=== PATIENT | male | born 1955 | race Caucasian/White ===

== ENCOUNTER → 2018-12-14 08:57 | Outpatient (CLI) | payer MEDICARE, OTHER, SELFPAY ==
[2018-12-14 09:43] LABS: Hemoglobin A1C% w Est Avg Glu 5.3 % (4.0-6.0)
[2018-12-14 09:54] LABS: Alanine Aminotransferase 28 IU/L (21-72); Albumin 4.5 g/dL (3.5-5.0); Albumin Globulin Ratio 1.6 (1.0-2.8); Alkaline Phosphatase 58 U/L (38-126); Aspartate Aminotransferase 24 IU/L (17-59); BUN Creatinine Ratio 24.4 (6-22); Bilirubin Total 1.7 mg/dL (0.2-1.3); Blood Urea Nitrogen 22 mg/dL (9-20); Calcium 9.5 mg/dL (8.4-10.2); Carbon Dioxide 27 mmol/L (22-32); Chloride 105 mmol/L (98-107); Estimated Glomerular Filt Rate > 60.0 mL/min (>60); Globulin 2.8 g/dL (1.7-4.1); Glucose 91 mg/dL (80-110); HEMOLYSIS < 15 (0-50); Potassium 4.4 mmol/L (3.4-5.1); Sodium 142 mmol/L (137-145); Total Protein 7.3 g/dL (6.3-8.2)
[2018-12-14 09:55] LABS: Creatinine Urine Random 150.9 mg/dL
[2018-12-14 10:00] LABS: Microalbumi Creatinin Ratio Ur 4.6 ug/mg CR (<30); Microalbumin Urine Random 0.7 mg/dL (0-1.6)
[2018-12-14 10:12] LABS: Free T4, Direct Thyroxine 1.53 ng/dL (0.78-2.19)
[2018-12-14 10:22] LABS: Prostate Specific Antigen Scrn 0.529 ng/mL (0.1-4.0)
[2018-12-14 10:26] LABS: Thyroid Stimulating Hormone 1.11 uIU/mL (0.47-4.68)
[2018-12-17 19:37] LABS: Testosterone Free 38.8 pg/mL (35.0-155.0); Testosterone Total 384 ng/dL (250-1100)
== END ==
PROVIDERS: Visit Provider Internal Medicine
DX: E03.9 Hypothyroidism, unspecified (principal); E11.9 Type 2 diabetes mellitus without complications; E78.5 Hyperlipidemia, unspecified; I10 Essential (primary) hypertension; Z12.5 Encounter for screening for malignant neoplasm of prostate
CPT/HCPCS: 36415; 80053; 82043; 82570; 83036; 84402; 84403; 84439; 84443; G0103

== ENCOUNTER → 2019-05-03 08:33 | Outpatient (CLI) | payer MEDICARE, OTHER, SELFPAY ==
[2019-05-03 09:37] LABS: Alanine Aminotransferase 19 IU/L (<50); Albumin 4.4 g/dL (3.5-5.0); Albumin Globulin Ratio 1.6 (1.0-2.8); Alkaline Phosphatase 57 U/L (38-126); Aspartate Aminotransferase 28 IU/L (17-59); Bilirubin Total 1.4 mg/dL (0.2-1.3); Blood Urea Nitrogen 22 mg/dL (9-20); Calcium 9.3 mg/dL (8.4-10.2); Carbon Dioxide 28 mmol/L (22-32); Chloride 107 mmol/L (98-107); Cholesterol 213 mg/dL (140-199); Estimated Glomerular Filt Rate > 60.0 mL/min (>60); Globulin 2.8 g/dL (1.7-4.1); Glucose 84 mg/dL (80-110); HDL Cholesterol 40 mg/dL (40-60); HEMOLYSIS < 15 (0-50); LDL Cholesterol Calculated 145 mg/dL (<100); Potassium 4.3 mmol/L (3.4-5.1); Sodium 143 mmol/L (137-145); Total Protein 7.2 g/dL (6.3-8.2); Triglycerides 140 mg/dL (35-150)
[2019-05-03 10:47] LABS: Hemoglobin A1C% w Est Avg Glu 5.2 % (4.0-6.0)
== END ==
PROVIDERS: PCP Internal Medicine; Visit Provider Internal Medicine
DX: E11.9 Type 2 diabetes mellitus without complications (principal); E78.5 Hyperlipidemia, unspecified; I10 Essential (primary) hypertension
CPT/HCPCS: 36415; 80053; 80061; 83036

== ENCOUNTER → 2019-05-04 10:51 | Outpatient (CLI) | payer MEDICARE, OTHER, SELFPAY ==
--- NOTE | 2019-05-04 10:54 | DI.RAD.S_ITS ---
PROCEDURE: XR KNEE RT 3V INDICATIONS: knee pain TECHNIQUE: 3 views of the knee were acquired. COMPARISON: None. FINDINGS: Bones: Prior fixation of proximal tibia shaft is seen. There is increased distance between lateral fixation plate and lateral cortex of proximal tibial shaft concerning for hardware loosening. 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 No new fracture or dislocation. No suspicious bony lesions. Soft tissues: No joint effusion. No suspicious soft tissue calcifications. IMPRESSION: Finding may indicate hardware loosening and proximal tibial shaft. Moderate tricompartment osteoarthritis. No acute fracture or dislocation. Dictated by: Blaise Chan M.D. on 05/04/2019 at 20:15 Approved by: Blaise Chan M.D. on 05/04/2019 at 20:17
== END ==
PROVIDERS: PCP Internal Medicine; Visit Provider Internal Medicine
DX: M25.561 Pain in right knee (principal); M17.11 Unilateral primary osteoarthritis, right knee
CPT/HCPCS: 73562

== ENCOUNTER → 2019-10-04 11:11 | Outpatient (CLI) | payer MEDICARE, OTHER, SELFPAY ==
--- NOTE | 2019-10-04 11:15 | DI.US.S_ITS ---
PROCEDURE: US PERIPH VENOUS LOW EXTREM LT INDICATIONS: CRAMPING TECHNIQUE: Real-time imaging, as well as color and pulse Doppler interrogation, were performed of the lower extremity deep veins from the inguinal ligament to the popliteal fossa. COMPARISON: None. FINDINGS: The common femoral, femoral and popliteal veins are normally compressible, and free of intraluminal thrombus. Color and pulse Doppler demonstrate normal phasic intraluminal flow. There is normal augmentation response to distal compression maneuver. IMPRESSION: No DVT found left leg. Dictated by: Charlie Carney M.D. on 10/04/2019 at 11:53 Approved by: Charlie Carney M.D. on 10/04/2019 at 11:54
== END ==
PROVIDERS: PCP Internal Medicine; Referring Provider Internal Medicine; Visit Provider Internal Medicine
DX: R25.2 Cramp and spasm (principal)
CPT/HCPCS: 93971

== ENCOUNTER → 2019-11-03 08:51 | Outpatient (CLI) | payer MEDICARE, OTHER, SELFPAY ==
[2019-11-03 11:06] LABS: Alanine Aminotransferase 16 IU/L (<50); Albumin 4.2 g/dL (3.5-5.0); Albumin Globulin Ratio 1.4 (1.0-2.8); Alkaline Phosphatase 52 U/L (38-126); Aspartate Aminotransferase 21 IU/L (17-59); BUN Creatinine Ratio 23.8 (6-22); Bilirubin Total 0.9 mg/dL (0.2-1.3); Blood Urea Nitrogen 24 mg/dL (9-20); Calcium 9.3 mg/dL (8.4-10.2); Carbon Dioxide 25 mmol/L (22-32); Chloride 111 mmol/L (98-107); Cholesterol 220 mg/dL (140-199); Estimated Glomerular Filt Rate > 60.0 mL/min (>60); Globulin 2.9 g/dL (1.7-4.1); Glucose 108 mg/dL (80-110); HDL Cholesterol 39 mg/dL (40-60); HEMOLYSIS < 15 (0-50); LDL Cholesterol Calculated 155 mg/dL (<100); Potassium 4.8 mmol/L (3.4-5.1); Sodium 143 mmol/L (137-145); Total Protein 7.1 g/dL (6.3-8.2); Triglycerides 129 mg/dL (35-150)
[2019-11-03 11:26] LABS: TSH w/ Reflex to FT4 2.48 uIU/mL (0.47-4.68)
== END ==
PROVIDERS: PCP Internal Medicine; Referring Provider Internal Medicine; Visit Provider Internal Medicine
DX: E03.9 Hypothyroidism, unspecified (principal); E78.5 Hyperlipidemia, unspecified; I10 Essential (primary) hypertension; R73.02 Impaired glucose tolerance (oral)
CPT/HCPCS: 36415; 80053; 80061; 84443

== ENCOUNTER → 2020-04-12 07:09 | Outpatient (CLI) | payer MEDICARE, OTHER, SELFPAY ==
[2020-04-12 07:58] LABS: Hemoglobin A1C% w Est Avg Glu 5.7 % (4.0-6.0)
[2020-04-12 08:07] LABS: Alanine Aminotransferase 18 IU/L (<50); Albumin 4.2 g/dL (3.5-5.0); Albumin Globulin Ratio 1.6 (1.0-2.8); Alkaline Phosphatase 57 U/L (38-126); Aspartate Aminotransferase 22 IU/L (17-59); BUN Creatinine Ratio 24.2 (6-22); Bilirubin Total 0.8 mg/dL (0.2-1.3); Blood Urea Nitrogen 24 mg/dL (9-20); Carbon Dioxide 28 mmol/L (22-32); Chloride 107 mmol/L (98-107); Cholesterol 206 mg/dL (140-199); Estimated Glomerular Filt Rate > 60.0 mL/min (>60); Globulin 2.7 g/dL (1.7-4.1); Glucose 103 mg/dL (80-110); HDL Cholesterol 41 mg/dL (40-60); HEMOLYSIS < 15 (0-50); LDL Cholesterol Calculated 138 mg/dL (<100); Potassium 4.6 mmol/L (3.4-5.1); Sodium 139 mmol/L (137-145); Total Protein 6.9 g/dL (6.3-8.2); Triglycerides 136 mg/dL (35-150)
[2020-04-12 08:22] LABS: Free T4, Direct Thyroxine 1.55 ng/dL (0.78-2.19)
[2020-04-12 08:36] LABS: Prostate Specific Antigen Scrn 2.95 ng/mL (0.1-4.0); Thyroid Stimulating Hormone 3.52 uIU/mL (0.47-4.68)
== END ==
PROVIDERS: PCP Internal Medicine; Referring Provider Internal Medicine; Visit Provider Internal Medicine
DX: R73.02 Impaired glucose tolerance (oral) (principal); I10 Essential (primary) hypertension; Z12.5 Encounter for screening for malignant neoplasm of prostate; E03.9 Hypothyroidism, unspecified; E78.5 Hyperlipidemia, unspecified
CPT/HCPCS: 36415; 80053; 80061; 83036; 84439; 84443; G0103

== ENCOUNTER → 2020-10-12 12:43 | Outpatient (CLI) | payer OTHER, SELFPAY ==
[2020-10-12 13:17] LABS: Alanine Aminotransferase 24 IU/L (<50); Albumin 4.4 g/dL (3.5-5.0); Albumin Globulin Ratio 1.5 (1.0-2.8); Alkaline Phosphatase 63 U/L (38-126); Aspartate Aminotransferase 29 IU/L (17-59); BUN Creatinine Ratio 18.1 (6-22); Bilirubin Total 1.3 mg/dL (0.2-1.3); Blood Urea Nitrogen 17 mg/dL (9-20); Calcium 9.6 mg/dL (8.4-10.2); Carbon Dioxide 26 mmol/L (22-32); Chloride 107 mmol/L (98-107); Cholesterol 264 mg/dL (140-199); Estimated Glomerular Filt Rate > 60.0 mL/min (>60); Globulin 2.9 g/dL (1.7-4.1); Glucose 95 mg/dL (80-110); HDL Cholesterol 41 mg/dL (40-60); HEMOLYSIS < 15 (0-50); LDL Cholesterol Calculated 165 mg/dL (<100); Potassium 4.4 mmol/L (3.4-5.1); Sodium 140 mmol/L (137-145); Total Protein 7.3 g/dL (6.3-8.2); Triglycerides 289 mg/dL (35-150)
[2020-10-12 13:47] LABS: Prostate Specific Antigen 0.801 ng/mL (0.10-4.00)
== END ==
PROVIDERS: PCP Internal Medicine; Referring Provider Internal Medicine; Visit Provider Internal Medicine
DX: E78.5 Hyperlipidemia, unspecified (principal); I10 Essential (primary) hypertension; R97.20 Elevated prostate specific antigen [PSA]; R73.02 Impaired glucose tolerance (oral); Z12.5 Encounter for screening for malignant neoplasm of prostate
CPT/HCPCS: 36415; 80053; 80061; 84153

== ENCOUNTER 2020-11-19 09:18 | Emergency (ER) | payer OTHER, SELFPAY ==
[2020-11-19 09:34] VITALS: BP 166/92; PULSE 65; RESP 14; TEMP 36.4; O2SAT 99
--- NOTE | 2020-11-19 11:12 | ED_ITS ---
HPI - Fall General Chief Complaint: Fall Stated Complaint: Fell backwards,hit head/headache Time Seen by Provider: 11/19/20 11:03 Source: patient Mode of arrival: Ambulatory Limitations: no limitations History of Present Illness HPI Narrative: This is a 65-year-old male who comes emergency department with complaint of mechanical ground level fall. Patient fell backwards striking his head, his upper back and right elbow. Patient has some pain in the soft tissue of his elbow but full range of motion. He states he had some tingling yesterday but that has resolved. He has some generalized neck discomfort in the soft tissue but none at midline. Patient states he has a mild headache. He has felt a little fuzzy today. He denies any severe headache. No vision changes. No nausea or vomiting. Patient has not had any new lower back or abdominal pain. Patient denies any bladder or bowel incontinence. No chest pain or shortness of breath or other issues. He does take an aspirin 81 mg daily as well as m edication for hypertension and dyslipidemia. Related Data Home Medications Medication Instructions Recorded Confirmed aspirin 81 mg tablet,delayed 81 mg PO DAILY 11/22/18 10/15/20 release (Adult Low Dose Aspirin) Previous Rx's Medication Instructions Recorded levothyroxine 137 mcg tablet 137 mcg PO DAILY #90 tab 03/12/20 fluocinonide 0.05 % topical cream 1 applic TOP BID PRN #120 g 04/16/20 trazodone 100 mg tablet 100 mg PO BEDTIME #90 tab 08/19/20 losartan 100 mg tablet 100 mg PO DAILY #90 tab 09/10/20 Allergies Allergy/AdvReac Type Severity Reaction Status Date / Time morphine AdvReac Mild Does not Verified 11/19/20 09:40 help. HAs Review of Systems Review of Systems ROS Unobtainable: All systems reviewed & are unremarkable except as noted in HPI and below Patient History Medical History Cellulitis of left thumb Diabetes type 2, controlled Essential hypertension Gilbert syndrome Hearing loss Hyperlipemia Hypothyroidism (acquired) Impaired glucose tolerance Male hypogonadism Primary insomnia Raynauds phenomenon Surgical History History of ankle surgery (~2001) History of knee surgery (~2001) Family History Family/Other No problems noted. Social History Smoking Status: Former smoker Smoking Status: Former smoker alcohol intake frequency: 0-2 drinks per day Substance Use Type: marijuana Exam Narrative Exam Narrative: GEN: Patient appears in mild distress. HEAD: No evidence of trauma, no raccoon/Degroot sign. NECK: Nontender, painless range of motion, trachea midline Negative for Nexus criteria, there is no line tenderness, distracting injury, altered mental status, neuro deficit, recent EtOH. EYES: PERRLA, EOMI ENT: External inspection normal, trachea is midline, TM's are normal no hemotypanum, Nares are clear, no septal hematoma, no dental or oral injury, airway is normal and with normal occlusion, No bony tenderness RESP: Chest is nontender and has symmetric movement, no ecchymosis, breath sounds are normal no crackles, wheezes or rales CVS: Heart sounds are normal, no murmur noted, No JVD. ABG/GI: Nontender, soft, normal bowel sounds, no distention, no organomegaly. NEURO: Oriented AOx3, neuro is grossly intact, sensation and motor is normal all 4 extremities moving, cranial nerves II through XII are intact, GCS is 15 PSYCH: Normal mood and affect SKIN: Patient has abrasions of right elbow, no lacerations, warm and dry, no crepitus and without decubitus BACK: No CVA tenderness, no vertebral tenderness, no step-off's, no crepitus EXT: Patient has full range of motion of his right elbow he does not have any bony tenderness, he does have some mild swelling over the dorsum of the forearm proximally with some ecchymosis, patient has equal economic analyst bilaterally, 5/5 muscle strength upper and lower extremities. Hips are nontender, no pedal edema, normal color and temperature, normal range of motion of extremities with normal tendon exam, 2+ pulses in all four extremities Initial Vital Signs Initial Vital Signs: Vital Signs Temperature 97.5 F L 11/19/20 09:34 Pulse Rate 65 11/19/20 09:34 Respiratory Rate 14 11/19/20 09:34 Blood Pressure 166/92 H 11/19/20 09:34 Pulse Oximetry 99 07/06/21 09:34 Scores GCS [place] coma scale eye opening: Spontaneous [place] coma scale verbal response: Orientated [place] coma scale motor response: Obey commands [place] coma scale total score: 15 Nexus Score for C-Spine Focal Neurologic deficit present: No Midline spinal tenderness present: No Altered level of conciousness present: No Intoxication present: No Distracting Injury Present: No Nexus Criteria for C-spine: 0 Course Orders Ordered: ED Orders 11/19/20 11:12 CT head/brain wo con Stat Vital Signs Vital signs: Vital Signs - 8 hr 11/19/20 09:34 Temperature 97.5 F L Pulse Rate 65 Respiratory Rate 14 Blood Pressure 166/92 H Pulse Oximetry 99 MDM - Fall Imaging Data CT scan - head: Radiologist's Impression: [address] [id number] Scan ReportSigned Patient: Chapo Santos [facility]#: [id number]: [id number]:[id number]/Sex: 65 / MDate of Service: 11/19/20Loc: EDAccession Number: [id number] Procedure: CT head/brain wo con Ordering Provider: Avril Figueroa D.O. PROCEDURE: CT HEAD/BRAIN WO CON INDICATIONS: fall, head injury, on asa TECHNIQUE: Noncontrast 4.5 mm thick angled axial sections acquired from the foramen magnum to the vertex, with coronal and sagittal reformats. For radiation dose reduction, the following was used: automated exposure control, adjustment of mA and/or kV according to patient size. COMPARISON: None. FINDINGS: Image quality: Excellent. CSF spaces: Basal cisterns are patent. No extra-axial fluid collections. Ventricles are normal in size and shape. Brain: No midline shift. No intracranial masses or hemorrhage. Gonzalez-white matter interface is normal. Skull and face: Small right parietal region scalp hematoma. Calvarium and visualized facial bones are intact, without suspicious lesions. Sinuses: Visualized sinuses and mastoids are clear. IMPRESSION: No acute intracranial abnormality. Dictated by: Jaya Rothman M.D. on 11/19/2020 at 11:46 Approved by: Jaya Rothman M.D. on 11/19/2020 at 11:47 Discharge Plan Departure Patient Disposition: Home Clinical Impression: Abrasion of elbow, Contusion of elbow, Head injury Instructions: DI for Closed Head Injury Activity Restrictions/Additional Instructions: Follow-up with your physician in the next week if you are not having improving symptoms. You may take Tylenol up to a 1000 mg every 8 hours as needed for pain. Wound Care: Keep wound(s) clean and dry. Wash daily with soap and water only. Do not use over the counter products (alcohol or peroxide)on the wounds unless instructed by a physician. If wound condition worsens (increased/expanding redness, developing fluid blisters, or worsening pain), either contact your doctor for an urgent re- assessment , or return to the Emergency Department. Return if fever greater than 100.4 Fahrenheit, increased swelling, increasing pain or worsening symptoms such as increased discharge or spreading redness. Severe headaches, passing out, new chest pain or shortness of breath, new numbness, tingling or weakness of her extremity, inability to ambulate, loss of bowel or bladder control other new or concerning symptoms. Prescriptions: No Action levothyroxine 137 mcg tablet 137 mcg PO DAILY Qty: 90 RF: 3 trazodone 100 mg tablet 100 mg PO BEDTIME Qty: 90 RF: 3 losartan 100 mg tablet 100 mg PO DAILY Qty: 90 RF: 2 fluocinonide 0.05 % cream 1 applic TOP BID PRN (Reason: itching/rash) Qty: 120 RF: 0 aspirin [Adult Low Dose Aspirin] 81 mg tablet,delayed release (DR/EC) 81 mg PO DAILY RF: 0 Referrals: Jorge Molina MD [Primary Care Provider] -
== END 2020-11-19 12:18 | disposition home or self-care (01) ==
PROVIDERS: Emergency Provider Emergency Medicine; PCP Internal Medicine
DX: S09.90XA Unspecified injury of head, initial encounter (principal); S50.311A Abrasion of right elbow, initial encounter; S50.01XA Contusion of right elbow, initial encounter; M54.6 Pain in thoracic spine; M25.521 Pain in right elbow; M54.2 Cervicalgia; W19.XXXA Unspecified fall, initial encounter
CPT/HCPCS: 70450; 99283; 99284

== ENCOUNTER → 2021-04-18 07:04 | Outpatient (CLI) | payer OTHER, SELFPAY ==
[2021-04-18 08:28] LABS: Alanine Aminotransferase 16 IU/L (<50); Albumin 4.1 g/dL (3.5-5.0); Albumin Globulin Ratio 1.5 (1.0-2.8); Alkaline Phosphatase 50 U/L (38-126); Aspartate Aminotransferase 21 IU/L (17-59); BUN Creatinine Ratio 19.2 (6-22); Blood Urea Nitrogen 19 mg/dL (9-20); Calcium 9.3 mg/dL (8.4-10.2); Carbon Dioxide 29 mmol/L (22-32); Chloride 108 mmol/L (98-107); Cholesterol 216 mg/dL (140-199); Estimated Glomerular Filt Rate > 60.0 mL/min (>60); Globulin 2.8 g/dL (1.7-4.1); Glucose 98 mg/dL (80-110); HDL Cholesterol 40 mg/dL (40-60); HEMOLYSIS < 15 (0-50); LDL Cholesterol Calculated 147 mg/dL (<100); Potassium 4.6 mmol/L (3.4-5.1); Sodium 142 mmol/L (137-145); Total Protein 6.9 g/dL (6.3-8.2); Triglycerides 145 mg/dL (35-150)
[2021-04-18 08:43] LABS: Free T4, Direct Thyroxine 1.46 ng/dL (0.78-2.19)
[2021-04-18 08:57] LABS: Thyroid Stimulating Hormone 4.12 uIU/mL (0.47-4.68)
== END ==
PROVIDERS: PCP Internal Medicine; Referring Provider Internal Medicine; Visit Provider Internal Medicine
DX: I10 Essential (primary) hypertension (principal); E78.2 Mixed hyperlipidemia; E03.9 Hypothyroidism, unspecified
CPT/HCPCS: 36415; 80053; 80061; 84439; 84443

== ENCOUNTER → 2021-06-03 14:40 | Outpatient (CLI) | payer MEDICARE, SELFPAY ==
--- NOTE | 2021-06-03 14:43 | DI.RAD.S_ITS ---
PROCEDURE: XR WRIST LT MIN 3V INDICATIONS: fall 6-8ft, L snuffbox tenderness TECHNIQUE: 4 views of the wrist were acquired. COMPARISON: [facility], CR, XR LUMBAR SPINE MIN 4V, 06/03/2021, 14:36. [facility], CR, XR HAND LT MIN 3V, 06/03/2021, 14:36. FINDINGS: Bones: Focal degenerative changes seen involving the 1st carpometacarpal joint, with joint space narrowing and irregularity and fragmented osteophytes. No jazzy superimposed fractures or dislocations. Milder degenerative changes are seen elsewhere. No suspicious bony lesions. Scaphoid view: No navicular fractures are seen. Soft tissues: No suspicious soft tissue calcifications. IMPRESSION: No definite fractures are seen. However, fragmented osteophytes are seen involving the 1st carpometacarpal joint, which limits evaluation for superimposed fracture. If there is point tenderness (or other clinical suspicion for a fracture not seen on these images) please consider a dedicated CT for further evaluation. Dictated by: Hill Gaytan M.D. on 06/03/2021 at 14:25 Approved by: Hill Gaytan M.D. on 06/03/2021 at 14:26
--- NOTE | 2021-06-03 14:43 | DI.RAD.S_ITS ---
PROCEDURE: XR HAND LT MIN 3V INDICATIONS: fall 6-8ft, L snuffbox tenderness and thenar edema/ecchymosis TECHNIQUE: 3 views of the hand(s) acquired. COMPARISON: [facility], CR, XR WRIST LT MIN 3V, 06/03/2021, 14:36. [facility], CR, XR LUMBAR SPINE MIN 4V, 06/03/2021, 14:36. FINDINGS: Bones: Focal degenerative change is seen of the 1st carpometacarpal joint, with fragmented osteophytes. No jazzy displaced fracture can be seen. No suspicious lytic or blastic lesions are seen. Soft tissues: No suspicious soft tissue calcifications. IMPRESSION: Fragmented osteophytes with focal degenerative change can be seen involving the 1st carpometacarpal joint, which limits evaluation for fracture. However, no displaced fractures can be seen. Dictated by: Hill Gaytan M.D. on 06/03/2021 at 14:23 Approved by: Hill Gaytan M.D. on 06/03/2021 at 14:24
--- NOTE | 2021-06-03 14:43 | DI.RAD.S_ITS ---
PROCEDURE: XR LUMBAR SPINE MIN 4V INDICATIONS: fall 6-8ft, R low back pain TECHNIQUE: 5 views of the lumbar spine were acquired, including bilateral oblique views. COMPARISON: [facility], CR, XR WRIST LT MIN 3V, 06/03/2021, 14:36. [facility], CR, XR HAND LT MIN 3V, 06/03/2021, 14:36. FINDINGS: Bones: 5 nonrib-bearing vertebrae are present. There is normal bony alignment. No vertebral body compression fractures. No suspicious bony lesions. Mild disc space narrowing is seen at L1-L2 and L2-L3. Associated endplate irregularity and sclerosis can be seen at these levels. Lower lumbar spine facet arthropathy is seen. Soft tissues: Overlying bowel gas pattern is normal. No suspicious soft tissue calcifications. Atherosclerotic calcification is noted. Oblique images: No pars defects. IMPRESSION: No acute fracture is seen by plain film. If there is point tenderness (or other clinical suspicion for a fracture not seen on these images) then a dedicated CT could be considered for further evaluation, if clinically appropriate. Dictated by: Hill Gaytan M.D. on 06/03/2021 at 14:24 Approved by: Hill Gaytan M.D. on 06/03/2021 at 14:25
== END ==
PROVIDERS: PCP Internal Medicine; Referring Provider Physician Assistant; Visit Provider Physician Assistant
DX: M25.532 Pain in left wrist (principal); M25.732 Osteophyte, left wrist; W11.XXXA Fall on and from ladder, initial encounter; M54.50 Low back pain, unspecified; M25.742 Osteophyte, left hand
CPT/HCPCS: 72110; 73110; 73130

== ENCOUNTER → 2022-02-26 17:23 | Outpatient (CLI) | payer MEDICARE, SELFPAY ==
[2022-02-26 18:13] LABS: Alanine Aminotransferase 21 IU/L (<50); Albumin 4.6 g/dL (3.5-5.0); Albumin Globulin Ratio 1.5 (1.0-2.8); Alkaline Phosphatase 59 U/L (38-126); Aspartate Aminotransferase 31 IU/L (17-59); Bilirubin Total 1.5 mg/dL (0.2-1.3); Blood Urea Nitrogen 24 mg/dL (9-20); Calcium 9.4 mg/dL (8.4-10.2); Carbon Dioxide 29 mmol/L (22-32); Chloride 105 mmol/L (98-107); Cholesterol 240 mg/dL (140-199); Estimated Glomerular Filt Rate > 60 mL/min (>60); Globulin 3.1 g/dL (1.7-4.1); Glucose 98 mg/dL (80-110); HDL Cholesterol 47 mg/dL (40-60); HEMOLYSIS < 15 (0-50); LDL Cholesterol Calculated 173 mg/dL (<100); Potassium 4.4 mmol/L (3.4-5.1); Sodium 141 mmol/L (137-145); Total Protein 7.7 g/dL (6.3-8.2); Triglycerides 100 mg/dL (35-150)
[2022-02-26 18:43] LABS: Prostate Specific Antigen Scrn 0.962 ng/mL (0.1-4.0)
== END ==
PROVIDERS: PCP Internal Medicine; Referring Provider Internal Medicine; Visit Provider Internal Medicine
DX: E78.2 Mixed hyperlipidemia (principal); Z12.5 Encounter for screening for malignant neoplasm of prostate; I10 Essential (primary) hypertension
CPT/HCPCS: 36415; 80053; 80061; G0103

== ENCOUNTER → 2022-05-05 10:12 | Outpatient (CLI) | payer MEDICARE, SELFPAY ==
[2022-05-05 11:40] LABS: COVID19 -Nasal RAPID Negative (Negative)
== END ==
PROVIDERS: PCP Internal Medicine; Visit Provider Surgery
DX: Z01.812 Encounter for preprocedural laboratory examination (principal); Z20.822 Contact with and (suspected) exposure to COVID-19
CPT/HCPCS: 87635; C9803

== ENCOUNTER 2022-05-06 08:43 | Day surgery (SDC) | payer MEDICARE, SELFPAY ==
[2022-05-06 09:21] VITALS: BP 148/89; PULSE 60; RESP 16; TEMP 36.6; O2SAT 97; BMI 29.6
[2022-05-06] MEDS: LACTATED RINGERS 1,000 ML 42 ML IV (09:38)
--- NOTE | 2022-05-06 10:18 | PM.HP.1 ---
History of Present Illness History of Present Illness Date Patient Seen: 05/06/22 Time Patient Seen: 10:18 Chief complaint: SCREENING COLONOSCOPY W/POSS BX Narrative: first colonoscopy for colon cancer screening. Patient History Medical History Cellulitis of left thumb Diabetes type 2, controlled Essential hypertension Gilbert syndrome Hearing loss Hyperlipemia Hypothyroidism (acquired) Impaired glucose tolerance Male hypogonadism Primary insomnia Raynauds phenomenon Surgical History History of ankle surgery (~2001) History of knee surgery (~2001) Family & Social History Family History Family/Other No problems noted. Social History: household members spouse Tobacco & Substance use: Smoking Status Former smoker alcohol intake frequency 0-2 drinks per day Substance Use Type marijuana Meds Home Medications and Allergies Home Medications Medication Instructions Recorded Confirmed Type aspirin 81 mg tablet,delayed 81 mg PO DAILY 11/22/18 05/06/22 History release (Adult Low Dose Aspirin) fluocinonide 0.05 % topical cream 1 applic topical BID PRN 04/16/20 03/03/22 Rx itching/rash #120 grams levothyroxine 137 mcg tablet 137 mcg PO DAILY #90 tabs 12/15/21 05/06/22 Rx losartan 100 mg tablet 100 mg PO DAILY #90 tabs 02/11/22 05/06/22 Rx sodium,potassium,mag sulfates 17.5 See Rx Instructions PO .COMPLEX 04/29/22 Rx gram-3.13 gram-1.6 gram oral soln #354 mL (Suprep Bowel Prep Kit) Allergies Allergy/AdvReac Type Severity Reaction Status Date / Time morphine AdvReac Mild Does not Verified 05/06/22 09:11 help. HAs Review of Systems Review of Systems ROS: Yes All systems reviewed with the patient and are negative except as otherwise documented Exam Vital Signs (past 8 hours): - 05/06/22 09:21 Temperature 98 F Pulse Rate 60 Respiratory Rate 16 Blood Pressure 148/89 H Pulse Oximetry 97 Oxygen Delivery Method Room Air Oxygen Delivery Method Room Air Const General: cooperative and healthy appearing HENNJ Head: normal to inspection, normocephalic and atraumatic Eyes General: appearance normal, both eyes and all related structures Neck Neck: trachea midline Chest Chest: normal inspection of the chest Resp Effort & Inspection: normal respiratory effort and able to speak in complete sentences Cardio Rate: regular rate Rhythm: regular rhythm GI Inspection: normal to inspection Skin General: atrophy Neuro General: patient alert, patient awake and patient oriented x3 Cognition: normal cognition Extrem General: normal to inspection Psych Attitude: cooperative Judgment: judgment good Assessment & Plan Assessment & Plan narrative: Colon cancer screening with colonoscopy using MAC COVID-19 COVID-19 status: Negative Time Spent With Patient Time with patient: less than 30 minutes Critical Care time: I spent a total of [] minutes of critical care time on this patient's care today; this time is exclusive of procedural time.
--- NOTE | 2022-05-06 10:38 | PM.OP.COLON ---
Operative Date/Time/Diagnoses Date of procedure: 05/06/22 Time of procedure: 10:39 Pre-op diagnosis: colon cancer screening Post-op diagnosis: same Procedure & Clinicians Study performed: Colonoscopy with MAC Same procedure as scheduled: Yes Indications: Colon cancer screening Surgeon: Jamee Nye Procedure Notes Procedure in detail: Preop diagnosis: Colon cancer screening Postop diagnosis: Same Operative procedure: Colonoscopy using MAC Surgeon: Jacqueline Nye MD Findings: Significant diverticulosis of the descending colon both large and small, no polyps identified Procedure: Patient placed in lateral position. Rectal exam performed showing normal tone no masses. Colonoscope inserted into the rectum and advanced to ileocecal valve with minimal difficulty. Insufflation and extraction of the scope and the above findings including retroflex in the rectum. Impression: Significant diverticulosis of the descending colon both large and small. No polyps identified Plan: Repeat colonoscopy in 10 years unless otherwise indicated by change in clinical condition Findings: divertiulosis Specimen(s): none sent Complications: none Post-procedure Recommendations: Colonoscopy in 10 years Follow up: as needed Disposition: PACU
[2022-05-06 10:42] VITALS: BP 94/64; PULSE 64; RESP 14; TEMP 36.2; O2SAT 94
[2022-05-06 10:47] VITALS: BP 96/64; PULSE 62; RESP 15; O2SAT 93
[2022-05-06 10:52] VITALS: BP 105/67; PULSE 64; RESP 13; O2SAT 95
[2022-05-06 10:58] VITALS: BP 116/81; PULSE 63; RESP 13; TEMP 36.4; O2SAT 95
[2022-05-06 11:09] VITALS: BP 113/75; PULSE 55; RESP 14; TEMP 36.9; O2SAT 98
== END 2022-05-06 11:23 | disposition home or self-care (01) ==
PROVIDERS: PCP Internal Medicine; Referring Provider Surgery; Visit Provider Surgery
PROC: 0DJD8ZZ Inspection of Lower Intestinal Tract, Via Natural or Artificial Opening Endoscopic (ICD-10-PCS; CPT 45378; principal; 2022-05-06 10:00)
DX: Z12.11 Encounter for screening for malignant neoplasm of colon (principal); K57.30 Diverticulosis of large intestine without perforation or abscess without bleeding
CPT/HCPCS: G0121; J2704

== ENCOUNTER → 2022-06-06 09:51 | Outpatient (CLI) | payer MEDICARE, SELFPAY ==
--- NOTE | 2022-06-06 09:53 | DI.CT.S_ITS ---
PROCEDURE: CT KIDNEY URETER BLADDER (KUB) INDICATIONS: suspect kidney stone, hematuria TECHNIQUE: Axial sections were acquired from the lung bases to the pubic symphysis. Coronal and sagittal reformats were performed. For radiation dose reduction, the following was used: automated exposure control, adjustment of mA and/or kV according to patient size. COMPARISON: None. FINDINGS: Image quality: Excellent. Lung bases: Unremarkable. Heart: No significant findings. URINARY: Right Kidney: There is an 8 mm Hounsfield units 1095 stone in the superior renal pole. A 9 mm Hounsfield units 1059 stone is noted in the inferior pole. 4.0 cm simple renal cyst is present. No obstruction. Right Ureter: No hydroureter. Left Kidney: Punctate inferior pole calcification. 2.3 cm simple renal cyst. No obstruction. Left Ureter: No hydroureter. Bladder: Normal wall thickness. No stones. ABDOMEN: Liver: Unremarkable. Gallbladder: Unremarkable. Biliary ducts: Unremarkable. Pancreas: Unremarkable. Spleen: Unremarkable. Adrenal Glands: 2.0 cm right adrenal gland mass Hounsfield units measure -16 Stomach and Bowel: Stomach, small bowel loops, and colon are nonobstructive. Appendix is normal. Moderate scattered diverticula without inflammatory change. Peritoneum: No abnormal intraperitoneal fluid. No free air. Ventral Wall: No hernia. Abdominal Nodes: No enlarged retroperitoneal or mesenteric lymph nodes. Vessels: Aorta and inferior vena cava are normal in size. PELVIS: Pelvic Organs: Unremarkable. Pelvic Nodes: Unremarkable. Miscellaneous: No inguinal hernias are seen. Bones: Unremarkable. IMPRESSION: Bilateral renal calculi more prominent on the right. No obstruction. Right adrenal mass most suggestive of benign adenoma. Dictated by: Tori Garzon M.D. on 06/06/2022 at 10:33 Approved by: Tori Garzon M.D. on 06/06/2022 at 10:36
== END ==
PROVIDERS: PCP Internal Medicine; Referring Provider Family Medicine; Visit Provider Family Medicine
DX: R31.9 Hematuria, unspecified (principal); N20.0 Calculus of kidney; N28.1 Cyst of kidney, acquired; E27.9 Disorder of adrenal gland, unspecified
CPT/HCPCS: 74176

== ENCOUNTER → 2022-07-01 07:54 | Outpatient (CLI) | payer MEDICARE, SELFPAY ==
--- NOTE | 2022-07-01 07:56 | DI.RAD.S_ITS ---
PROCEDURE: XR KUB INDICATIONS: kidney stone TECHNIQUE: One view of the abdomen acquired. COMPARISON: None. FINDINGS: Surgical changes and devices: None. Bowel: Bowel gas pattern is normal. Soft tissues: Oval calcifications are seen projecting in right renal parenchyma measures 8 x 5 mm in upper to midpole right kidney and 9 x 10 mm in mid to lower pole right kidney. No gross left-sided renal stone is seen. Visualized solid organ contours appear normal in size. Bones: No suspicious bony lesions. IMPRESSION: Suggestion of right-sided renal calculi as above. No bowel obstruction or gross free air. Dictated by: Blaise Chan M.D. on 07/01/2022 at 9:43 Approved by: Blaise Chan M.D. on 07/01/2022 at 9:45
== END ==
PROVIDERS: PCP Internal Medicine; Referring Provider Specialist; Visit Provider Specialist
DX: N20.0 Calculus of kidney (principal); N23 Unspecified renal colic
CPT/HCPCS: 51798; 74018; 81002; 99215

== ENCOUNTER 2022-07-24 07:43 | Day surgery (SDC) | payer MEDICARE, SELFPAY ==
[2022-07-22 14:43] VITALS: BMI 30.2
--- NOTE | 2022-07-24 | DI.RAD.S_ITS ---
PROCEDURE: XR KUB INDICATIONS: Right renal calculi TECHNIQUE: One view of the abdomen acquired. COMPARISON: [facility], CT, CT KIDNEY URETER BLADDER (KUB), 06/06/2022, 9:57. [facility], CR, XR KUB, 07/01/2022, 7:59. FINDINGS: Surgical changes and devices: None. Bowel: Bowel gas pattern is normal. Soft tissues: 2 right kidney stones are unchanged. These measure 1.2 cm and 0.8 cm. No suspicious abdominal calcifications. Visualized solid organ contours appear normal in size. Bones: No suspicious bony lesions. IMPRESSION: Right kidney stones x2 are unchanged. Dictated by: Akira Campoverde M.D. on 07/24/2022 at 8:26 Approved by: Akira Campoverde M.D. on 07/24/2022 at 8:29
== END 2022-07-24 07:45 | disposition home or self-care (01) ==
PROVIDERS: PCP Internal Medicine; Referring Provider Specialist; Visit Provider Specialist
DX: N20.0 Calculus of kidney (principal); Z53.09 Procedure and treatment not carried out because of other contraindication
CPT/HCPCS: 74018

== ENCOUNTER 2022-08-07 06:24 | Observation (INO) | payer MEDICARE, SELFPAY ==
[2022-07-30 12:33] VITALS: BMI 30.2
[2022-08-07] VITALS (19 sets, daily range): BP systolic 131–195; BP diastolic 62–138; PULSE 44–98; RESP 12–21; TEMP 35.9–37.1; O2SAT 88–100; BMI 30.2
--- NOTE | 2022-08-07 | DI.CT.S_ITS ---
PROCEDURE: CT ANGIO HEAD AND NECK INDICATIONS: RIGHT FACIAL DROOP AND TINGLING TECHNIQUE: After the administration of intravenous contrast, 1 mm thick sections acquired from the aortic arch through the [place]. Post-contrast 4.5 mm thick sections then re-acquired from the foramen magnum to the vertex. 3-dimensional [id number] (MIP) and/or volume rendering reformats were acquired of the central intracranial vasculature and neck separately. For radiation dose reduction, the following was used: automated exposure control, adjustment of mA and/or kV according to patient size. COMPARISON: None. FINDINGS: Image quality: Excellent. BRAIN: CSF spaces: Ventricles are normal in size and shape. Basal cisterns are patent. No extra-axial fluid collections. Brain: No midline shift. No intracranial masses. Gonzalez-white matter interface appears intact. There are atherosclerotic calcifications of the intracranial segments of the internal carotid arteries. No abnormal enhancement. Skull and face: Calvarium and facial bones appear intact, without suspicious lesions. Orbits appear normal. Sinuses: Sinuses and mastoids are clear. HEAD CT ANGIOGRAPHY: Anterior circulation: Atherosclerotic calcifications are noted. Intracranial internal carotid arteries appear patent without high-grade stenosis. There is flow/opacification within the paired anterior cerebral arteries. There is opacification within the middle cerebral arteries. The anterior communicating artery is seen. No aneurysms are seen. No occlusion. Posterior circulation: Visualized portions of the vertebral arteries are patent and join to form a normal appearing basilar artery. No evidence for high-grade stenosis. No occlusions. There is opacification of the posterior cerebral arteries. No aneurysms are seen. NECK CT ANGIOGRAPHY: Carotid system: The great vessels demonstrate a conventional anatomy as they arise from the aortic arch. Atherosclerotic calcifications noted at the origins of the great vessels. The origins of the common carotid arteries appear patent. The common carotid arteries appear patent throughout their visualized courses without high grade stenosis. Scattered atherosclerotic calcifications of the carotid bifurcation bilaterally. The bifurcation regions are both patent without high grade stenosis. The internal carotid arteries demonstrate normal calibers and courses. Posterior circulation: Atherosclerotic calcifications are noted. The origins of the vertebral arteries both appear patent without hemodynamically significant stenosis. The more superior extracranial portions of both vertebral arteries also demonstrate normal courses and calibers. They join to form a normal appearing basilar artery. Soft tissues: Visualized neck soft tissues demonstrate no suspicious abnormalities. Bones: No suspicious bony lesions. Visualized cervical spine appears normally aligned. No acute compression fractures of the vertebral bodies. Multilevel cervical spondylosis most prominent from C5-6 through C6-7. IMPRESSION: 1. Negative CT angiogram of the head and neck arterial vasculature. 2. Atherosclerosis. Other chronic findings as above. If there is persistent or high clinical suspicion for acute cerebrovascular ischemia/stroke, more sensitive evaluation with brain MRI can be considered. Any quantitative measurements of stenosis were performed using NASCET criteria. Dictated by: Rickie Grant M.D. on 08/07/2022 at 10:51 Approved by: Rickie Grant M.D. on 08/07/2022 at 10:58
--- NOTE | 2022-08-07 | DI.RAD.S_ITS ---
PROCEDURE: XR KUB INDICATIONS: Right renal calculus TECHNIQUE: One view of the abdomen acquired. COMPARISON: [facility], , XR KUB, 07/24/2022, 9:00. FINDINGS: Surgical changes and devices: None. Bowel: Bowel gas pattern is nonobstructive. Soft tissues: No suspicious abdominal calcifications. Visualized solid organ contours appear normal in size. Redemonstration of 2 renal stones projecting over the right renal shadow. These are stable. The more superior stone measures 0.8 cm and the more inferior stone measures 1.2 cm. Bones: No suspicious bony lesions. IMPRESSION: Stable radiographic appearance of 2 right renal stones as described above. No acute radiographic abnormalities. Dictated by: Rickie Grant M.D. on 08/07/2022 at 9:30 Approved by: Rickie Grant M.D. on 08/07/2022 at 9:32
[2022-08-07] MEDS: LACTATED RINGERS 1,000 ML 21 ML IV ×2 (07:09→08:35)
--- NOTE | 2022-08-07 07:11 | SUR.OPER ---
Addendum entered by Idalia Lane R.N. 08/07/22 07:12: Lithotomy on ESWL bed, head on pillow, arms at sides. Legs secured in ESWL padded fins stirrups. Legs released from lithotomy after stent placement and returned to supine on ESWL table with arms at side. Original Note: Lithotomy on esw bed, head on pillow, arms secured on padded arm boards at <90 degrees abduction. Legs secured in padded yellow fins stirrups.
--- NOTE | 2022-08-07 07:51 | PM.PREOP ---
Pre-operative Note COVID-19 Criteria for continued procedure: Expected advancement of disease process, Possibility delay results in more complex future surgery or treatment, Continuing or worsening of significant or severe pain, Delay expected to result in less-positive ultimate med/surg outcome and Non-surgical alternatives not available or appropriate per current SOC Interval Note History & Physical reviewed/Exam performed by Physician: Yes Changes to H&P: No
--- NOTE | 2022-08-07 07:54 | PM.HP.1 ---
History of Present Illness History of Present Illness Date Patient Seen: 08/07/22 Time Patient Seen: 07:20 Chief complaint: SDC Narrative: Chapo is a 67-year-old male with history of intermittent right flank pain since approximately 2015. Recent imaging including CT and plain films have identified an 8 mm right upper pole calculus and a 9 mm right interpolar calculus. An incidental 2 mm calculus was also demonstrated on CT in the left kidney which was also nonobstructing. 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 He requests definitive intervention. Patient History Medical History Calculus of right kidney Cellulitis of left thumb Diabetes type 2, controlled Diverticular disease of colon Essential hypertension Gilbert syndrome Hearing loss History of arthritis History of renal stone Hx of essential hypertension Hyperlipemia Hypothyroidism (acquired) Impaired glucose tolerance Kidney stones Male hypogonadism Primary insomnia Raynauds phenomenon Renal colic on right side Surgical History History of ankle surgery (~2001) History of knee surgery (~2001) Hx of colonoscopy (05/06/22) Family & Social History Family History Family/Other No problems noted. Social History: household members spouse Tobacco & Substance use: Smoking Status Former smoker alcohol intake current alcohol intake frequency 0-2 drinks per day Substance Use Type marijuana Meds Home Medications and Allergies Home Medications Medication Instructions Recorded Confirmed Type fluocinonide 0.05 % topical cream 1 applic topical BID PRN 04/16/20 05/21/22 Rx itching/rash #120 grams levothyroxine 137 mcg tablet 137 mcg PO DAILY #90 tabs 12/15/21 08/07/22 Rx losartan 100 mg tablet 100 mg PO DAILY #90 tabs 05/26/22 08/07/22 Rx tadalafil 5 mg tablet (Cialis) 5 mg PO DAILY PRN sexual activity 07/01/22 08/07/22 Rx #30 tabs Allergies Allergy/AdvReac Type Severity Reaction Status Date / Time tomato Allergy Verified 08/07/22 06:39 morphine AdvReac Mild Does not Verified 08/07/22 06:39 help. HAs Review of Systems Review of Systems ROS: Yes All systems reviewed with the patient and are negative except as otherwise documented Exam Vital Signs (past 8 hours): - 08/07/22 06:55 Temperature 97.6 F Pulse Rate 57 L Respiratory Rate 16 Blood Pressure 141/87 H Pulse Oximetry 98 Oxygen Delivery Method Room Air Oxygen Delivery Method Room Air Narrative Exam Narrative: Well-developed moderately over nourished elderly male no acute distress. Head/neck-sclera are clear pupils are equal and round bilaterally. No visible evidence of adenopathy or JVD. Chest-equal and unlabored expansion bilaterally. Heart-normal sinus rhythm. Assessment & Plan Assessment and plan (1) Calculus of right kidney: Status: Acute (2) Renal colic on right side: Status: Acute (3) History of renal stone: Status: Acute Plan 1. Proceed CYSTOSCOPY/PLACEMENT RIGHT URETERAL STENT/RIGHT EXTRACORPOREAL SHOCKWAVE LITHOTRIPSY.
[2022-08-07] MEDS: CEFAZOLIN 2 GM/100 ML PREMIX 100 ML IV (08:05)
--- NOTE | 2022-08-07 09:08 | PM.OP.1 ---
Operative Date/Time/Diagnoses Date of procedure: 08/07/22 Time of procedure: 08:50 Pre-op diagnosis: 1. Right renal calculi x2. 2. Right renal colic. Post-op diagnosis: same Procedure & Clinicians Procedure: 1. Cystoscopy/placement right ureteral stent (7 Ugandan by 22-32 cm multi-length). 2. Right extracorporeal shockwave lithotripsy (maximal power level 7.0 x 2000 shocks). Same procedure as scheduled: Yes Indications: 1. Right renal calculi x2. 2. Right renal colic Surgeon: Tien Ferrer Click Yes if Unassisted: Yes Anesthesia Type: General Operative Notes Findings: Index calculi, 8 mm right upper pole calculus, and 9 mm right interpolar calculus unchanged in position compared to preoperative imaging. Closure Type: not applicable Specimen(s): none sent Applied: other (Seven Ugandan x 22-32 cm multi-length.) Estimated Blood Loss (mL): 0 Blood products transfused: none Procedure in detail: The patient was positioned supine and was administered general anesthesia. He was then repositioned in semi lithotomy the lower abdomen, genitalia, and groin were then prepped and draped in sterile fashion. The 22 [place] panendoscope of the past lower urinary tract with findings of a normal caliber urethra without annular stricture or lesion., external sphincter was intact with normal overlying urothelium., prostate had 4+ cm length with moderate lateral lobe hyperplasia and elevated median bar. Bladder demonstrated 1+ trabeculation and normal ureteral orifices bilaterally. No evidence of stone, neoplasm or diverticulum. Next a 0.35 hybrid guidewire was advanced through the working channel of the scope and advanced to the right ureteral orifice and advanced proximally under direct and fluoroscopic guidance. Over this a 7 [place] by 22-32 cm multi LENGTH stent was advanced, again under direct and fluoroscopic guidance. NO RETRIEVAL LINE WAS LEFT ATTACHED. The bladder was then drained completely and the horton endoscope was removed. Next, the upper pole right renal calculus was localized in the X, Y, and Z plane. Lithotripsy was then commenced at minimal power level for 200 shocks. A 2 minute pause was then conducted. Lithotripsy was then commenced and the power level was gradually increased to a maximum of 7.0. There was excellent evidence of stone comminution. Total of proximally 900 shocks were delivered to the stone. Next, lower interpolar stone was localized in the X, Y, and Z plane. Lithotripsy was then conducted for total of proximally 1100 shocks. At a total of 2000 shocks there was excellent radiographic evidence of stone comminution of both stones. The patient was then repositioned in supine, was awakened, transferred to [facility], and transferred to recovery in stable condition. Complications: none Post-operative Condition: stable Disposition: PACU Plan for aftercare: Discharge home.
[2022-08-07] MEDS: POLYVINYL ALCOHOL DROPS 1 DROPS EYE-RIGHT (09:16)
--- NOTE | 2022-08-07 09:24 | SUR.PHASEII ---
Pt positioned left side head down per MD
--- NOTE | 2022-08-07 10:25 | SUR.PHASEII ---
Code neuro called due to altered mental status and facial droop. Labs drawn and sent. Patient to CT via stetcher.
--- NOTE | 2022-08-07 10:26 | DI.CT.S_ITS ---
PROCEDURE: CT STROKE INDICATIONS: possible CVA TECHNIQUE: Noncontrast 4.5 mm thick angled axial sections acquired from the foramen magnum to the vertex, with coronal reformats. For radiation dose reduction, the following was used: automated exposure control, adjustment of mA and/or kV according to patient size. COMPARISON: None. FINDINGS: Image quality: Excellent. CSF spaces: Basal cisterns are patent. No extra-axial fluid collections. The ventricles are symmetric in size and shape. Brain: No intracranial bleeds or masses. There is cerebral volume loss for age, with resultant ventricular and sulcal prominence. There are periventricular and deep white matter chronic small vessel ischemic changes. There is intracranial internal carotid artery atherosclerosis. Skull and face: Calvarium and visualized facial bones appear intact, without suspicious lesions. Sinuses: Visualized sinuses and mastoids are clear. IMPRESSION: 1. CT head without acute intracranial abnormalities or acute calvarial fractures. 2. Age-related senescent changes and sequela of chronic small vessel ischemic disease. Findings were discussed with Dr. Liu at 1047 hrs PST. This study fulfills neurological imaging criteria for inclusion or exclusion of acute stroke therapies based on available published neurological guidelines. Dictated by: Rickie Grant M.D. on 08/07/2022 at 10:40 Approved by: Rickie Grant M.D. on 08/07/2022 at 10:49
[2022-08-07 10:35] LABS: Add Manual Diff / Slide Review NO; Basophils Absolute Auto 0 /uL (0-100); Basophils Percent Auto 0.7 % (0-2); Eosinophils Absolute Auto 200 /uL (0-450); Eosinophils Percent Auto 2.7 % (2-4); Hematocrit 44.2 % (41-53); Hemoglobin 14.9 g/dL (13.5-17.5); Lymphocytes Absolute Auto 1600 /uL (1100-4500); Lymphocytes Percent Auto 24.9 % (25-40); Mean Corpuscular HGB Conc 33.8 % (30-36); Mean Corpuscular Hemoglobin 32.3 PG (26-34); Mean Corpuscular Volume 95.5 fL (80-100); Monocytes Absolute Auto 500 /uL (0-900); Monocytes Percent Auto 8.1 % (3-14); Neutrophils Absolute Auto 4000 /uL (1500-7000); Neutrophils Percent Auto 63.6 % (50-75); Platelet Count 147 X10^3/uL (150-400); Red Blood Cell Count 4.63 X10^6/uL (4.5-5.9); Red Cell Distribution Width 13.5 % (11.6-14.8); White Blood Cell Count 6.3 X10^3/uL (4.5-11.0)
[2022-08-07 10:39] LABS: INR 1.1 (0.9-1.3); Prothrombin Time 12.2 SECONDS (10.1-12.7)
[2022-08-07 10:42] LABS: PTT Partial Thromboplastin Tim 34 SECONDS (26-36)
[2022-08-07] MEDS: OXYCODONE IR 5 MG TABLET PO ×3 (11:22→21:21)
--- NOTE | 2022-08-07 11:57 | DI.RAD.S_ITS ---
PROCEDURE: XR CHEST 1V INDICATIONS: upper lobe infiltrate on CT TECHNIQUE: One view of the chest was acquired. COMPARISON: None. FINDINGS: Surgical changes and devices: None. Lungs and pleura: Right basal opacity is present. Lung volumes. No pleural effusions. Mediastinum: Borderline enlarged heart. Bones and chest wall: No suspicious bony lesions. Overlying soft tissues appear unremarkable. IMPRESSION: Small opacity at the right lung base could represent atelectasis or early airspace disease. Consider future imaging surveillance to assess for resolution. Low lung volumes. Dictated by: José Luis Shipman M.D. on 08/07/2022 at 12:44 Approved by: José Luis Shipman M.D. on 08/07/2022 at 12:46
--- NOTE | 2022-08-07 12:01 | DI.MRI.S_ITS ---
PROCEDURE: MR HEAD/BRAIN WO CON INDICATIONS: TIA, right facial droop/numbness TECHNIQUE: Noncontrast axial T1 spin echo, axial T2 fast spin echo, sagittal and axial FLAIR, coronal T2 fast spin echo, axial gradient echo, axial diffusion and ADC through the brain. COMPARISON: None. FINDINGS: Image quality: Good CSF spaces: Basal cisterns are patent. Lateral ventricles are symmetric. Volume: Volume loss. Periventricular white matter signal abnormality most commonly seen with small vessel disease. These findings are moderate. Volume loss is particularly pronounced in the cerebellum. Brain: No intracranial hemorrhage. Gonzalez-white differentiation is grossly maintained. Craniofacial structures: No displaced fracture. Sinuses are clear. Orbits are intact. IMPRESSION: No acute infarct identified. No acute hematoma. Dictated by: José Luis Shipman M.D. on 08/07/2022 at 14:05 Approved by: José Luis Shipman M.D. on 08/07/2022 at 14:07
--- NOTE | 2022-08-07 12:05 | PM.HP.1 ---
History of Present Illness History of Present Illness Date Patient Seen: 08/07/22 Chief complaint: SDC Narrative: Chapo Santos is a 67-year-old male with past medical history of hypertension, hyperlipidemia, type 2 diabetes, hypothyroidism, and kidney stones who presents postop after right kidney lithotripsy and stent placement with possible TIA. Patient awoke from anesthesia with noticeable facial droop and said his right face felt numb. No other neuro deficits by the time I assessed patient his symptoms had resolved. CT head and CTA head neck were normal. Patient is in pain in his right flank from the surgery and blood pressure is elevated to 190s over 100 systolic. Labs are unremarkable. He denies headache, dizziness, visual changes, nausea vomiting, chest pain, or shortness of breath. Patient History Medical History Calculus of right kidney Cellulitis of left thumb Diabetes type 2, controlled Diverticular disease of colon Essential hypertension Gilbert syndrome Hearing loss History of arthritis History of renal stone Hx of essential hypertension Hyperlipemia Hypothyroidism (acquired) Impaired glucose tolerance Kidney stones Male hypogonadism Primary insomnia Raynauds phenomenon Renal colic on right side Surgical History History of ankle surgery (~2001) History of knee surgery (~2001) Hx of colonoscopy (05/06/22) Family & Social History Family History Family/Other No problems noted. Social History: household members spouse Tobacco & Substance use: Smoking Status Former smoker alcohol intake current alcohol intake frequency 0-2 drinks per day Substance Use Type marijuana Meds Home Medications and Allergies Home Medications Medication Instructions Recorded Confirmed Type fluocinonide 0.05 % topical cream 1 applic topical BID PRN 04/16/20 05/21/22 Rx itching/rash #120 grams levothyroxine 137 mcg tablet 137 mcg PO DAILY #90 tabs 12/15/21 08/07/22 Rx losartan 100 mg tablet 100 mg PO DAILY #90 tabs 05/26/22 08/07/22 Rx tadalafil 5 mg tablet (Cialis) 5 mg PO DAILY PRN sexual activity 07/01/22 08/07/22 Rx #30 tabs oxycodone 5 mg tablet 5 mg PO Q4H PRN pain #14 tabs 08/07/22 Rx Allergies Allergy/AdvReac Type Severity Reaction Status Date / Time tomato Allergy Verified 08/07/22 06:39 morphine AdvReac Mild Does not Verified 08/07/22 06:39 help. HAs Review of Systems Review of Systems Narrative: All other systems reviewed with the patient and are negative unless otherwise stated. Exam Vital Signs (past 8 hours): - 08/07/22 06:55 08/07/22 09:07 08/07/22 09:12 Temperature 97.6 F 97.4 F L Pulse Rate 57 L 67 62 Respiratory Rate 16 12 12 Blood Pressure 141/87 H 174/98 H 162/88 H Pulse Oximetry 98 93 91 Oxygen Delivery Method Room Air Room Air Room Air 08/07/22 09:17 08/07/22 09:25 08/07/22 09:30 Temperature 98.2 F Pulse Rate 63 61 54 L Respiratory Rate 14 16 16 Blood Pressure 159/82 H 159/62 H 188/98 H Pulse Oximetry 91 90 L 98 Oxygen Delivery Method Room Air Room Air Room Air 08/07/22 09:45 08/07/22 10:00 08/07/22 10:30 Temperature Pulse Rate 58 L 58 L 58 L Respiratory Rate 16 16 16 Blood Pressure 182/90 H 188/98 H 182/98 H Pulse Oximetry 98 98 88 L Oxygen Delivery Method Room Air Room Air 08/07/22 11:27 08/07/22 11:00 08/07/22 10:15 Temperature Pulse Rate 56 L 98 H 56 L Respiratory Rate 15 16 14 Blood Pressure 187/88 H 187/98 H 192/98 H Pulse Oximetry 98 98 100 Oxygen Delivery Method Room Air Room Air Room Air 08/07/22 10:45 Temperature Pulse Rate 58 L Respiratory Rate 16 Blood Pressure 190/88 H Pulse Oximetry 100 Oxygen Delivery Method Room Air Oxygen Delivery Method Room Air Narrative Exam Narrative: GEN: no acute distress, appears in pain HEENT: moist mucous membranes, PERRL NECK: trachea midline, no JVD CV: regular rate and rhythm, no murmurs PULM: clear bilaterally ABD: soft, nontender, nondistended, no organomegaly EXT: warm and well perfused with no edema NEURO: awake, alert, oriented, no focal deficits, no facial droop, no extremity weakness Objective Labs 03/24/23 10:20 Labs: Laboratory Results - last 24 hr 08/07/22 08/07/22 10:20 10:20 WBC 6.3 RBC 4.63 Hgb 14.9 Hct 44.2 MCV 95.5 MCH 32.3 MCHC 33.8 RDW 13.5 Plt Count 147 L Neut % (Auto) 63.6 Lymph % (Auto) 24.9 L [place] % (Auto) 8.1 Eos % (Auto) 2.7 Baso % (Auto) 0.7 Neut # (Auto) 4000 Lymph # (Auto) 1600 [place] # (Auto) 500 Eos # (Auto) 200 Baso # (Auto) 0 PT 12.2 INR 1.1 APTT 34 Assessment & Plan Assessment & Plan narrative: # possible postop TIA -patient awoke from anesthesia with right-sided facial droop and right facial numbness, not tpa candidate as symptoms resolved -CT head and CTA head and neck were normal -MRI brain ordered, echo ordered -tele to look for atrial fibrillation -start aspirin daily, ABCD2 score of 2 so we will not add Plavix at this time -permissive hypertension -check lipids, A1c 5.8% # s/p right lithotripsy and stent placement due to 2 kidney stones -performed by Dr. Ferrer, urology on 08/07 -pain medication as needed # hypertension -holding home losartan for 24 hour # type 2 diabetes -not on medications at home, most recent A1c 5.7% in 2019 -A1c 5.8% # hypothyroidism -continue home Synthroid -check TSH Code status is full code. COVID negative. DVT prophylaxis with Lovenox. Proxy is . I have reviewed home meds and used all available resources to reconcile the home meds. This patient will be admitted as observation and will require less than 2 midnights of hospital time to treat TIA.
--- NOTE | 2022-08-07 12:07 | PC.NURSE ---
Day shift: Pt in room from PACU at approx 1200. He is A&Ox4. NIH 0. Spouse in room for support. Tele placed on Pt. RA 97%. BP is elevated 195/94. Dr Liu aware Pt in room 222. We was able to get from stretcher to AC bed well and steady on his feet. Swallow eval by [employer]AL[employer] ASSURANCE AUDITOR passed by Pt. WIll continue with plan of care. Pt does endorse rt side abd and back pain.
[2022-08-07] MEDS: OXYCODONE IR 10 MG TABLET PO (12:15)
[2022-08-07 12:55] LABS: Hemoglobin A1C% w Est Avg Glu 5.8 % (4.0-6.0)
[2022-08-07 13:16] LABS: COVID19 -Nasal RAPID Negative (Negative)
[2022-08-07 15:16] LABS: Alanine Aminotransferase 30 IU/L (<50); Albumin 4.1 g/dL (3.5-5.0); Albumin Globulin Ratio 1.5 (1.0-2.8); Alkaline Phosphatase 77 U/L (38-126); Aspartate Aminotransferase 30 IU/L (17-59); BUN Creatinine Ratio 14.2 (6-22); Bilirubin Total 1.1 mg/dL (0.2-1.3); Blood Urea Nitrogen 16 mg/dL (9-20); Calcium 8.6 mg/dL (8.4-10.2); Carbon Dioxide 26 mmol/L (22-32); Chloride 105 mmol/L (98-107); Cholesterol 237 mg/dL (140-199); Estimated Glomerular Filt Rate > 60 mL/min (>60); Globulin 2.8 g/dL (1.7-4.1); Glucose 128 mg/dL (80-110); HDL Cholesterol 37 mg/dL (40-60); HEMOLYSIS < 15 (0-50); LDL Cholesterol Calculated 163 mg/dL (<100); Potassium 4.3 mmol/L (3.4-5.1); Sodium 139 mmol/L (137-145); Total Protein 6.9 g/dL (6.3-8.2); Triglycerides 183 mg/dL (35-150)
[2022-08-07 15:30] LABS: Magnesium 2.1 mg/dL (1.6-2.3)
[2022-08-07] MEDS: ENOXAPARIN 40 MG/0.4 ML SYRINGE SUBCUT (15:34)
[2022-08-07] MEDS: ASPIRIN EC 81 MG TABLET PO (15:34)
[2022-08-07 15:45] LABS: TSH w/ Reflex to FT4 2.83 uIU/mL (0.47-4.68)
[2022-08-07] MEDS: ACETAMINOPHEN 325 MG TABLET 650 MG PO (17:19)
[2022-08-07] MEDS: MELATONIN 3 MG TABLET 6 MG PO (21:19)
[2022-08-08] VITALS: BP 89/54; PULSE 68; RESP 22; TEMP 36.8; O2SAT 91
[2022-08-08] MEDS: OXYCODONE IR 10 MG TABLET PO (02:40)
[2022-08-08 04:00] VITALS: BP 114/70; PULSE 65; RESP 17; TEMP 36.8; O2SAT 93
[2022-08-08] MEDS: LEVOTHYROXINE 137 MCG TABLET PO (05:35)
[2022-08-08 06:00] VITALS: RESP 20
[2022-08-08 06:02] LABS: Add Manual Diff / Slide Review NO; Basophils Absolute Auto 0 /uL (0-100); Basophils Percent Auto 0.2 % (0-2); Eosinophils Absolute Auto 100 /uL (0-450); Eosinophils Percent Auto 1.2 % (2-4); Hematocrit 40.2 % (41-53); Hemoglobin 13.7 g/dL (13.5-17.5); Lymphocytes Absolute Auto 1200 /uL (1100-4500); Lymphocytes Percent Auto 12.9 % (25-40); Mean Corpuscular HGB Conc 34.1 % (30-36); Mean Corpuscular Hemoglobin 32.1 PG (26-34); Mean Corpuscular Volume 94.3 fL (80-100); Monocytes Absolute Auto 1000 /uL (0-900); Monocytes Percent Auto 10.5 % (3-14); Neutrophils Absolute Auto 6900 /uL (1500-7000); Neutrophils Percent Auto 75.2 % (50-75); Platelet Count 138 X10^3/uL (150-400); Red Blood Cell Count 4.27 X10^6/uL (4.5-5.9); Red Cell Distribution Width 13.3 % (11.6-14.8); White Blood Cell Count 9.2 X10^3/uL (4.5-11.0)
[2022-08-08 06:08] LABS: HEMOLYSIS < 15 (0-50)
[2022-08-08 06:09] LABS: BUN Creatinine Ratio 12.2 (6-22); Blood Urea Nitrogen 14 mg/dL (9-20); Calcium 8.1 mg/dL (8.4-10.2); Carbon Dioxide 24 mmol/L (22-32); Chloride 105 mmol/L (98-107); Estimated Glomerular Filt Rate > 60 mL/min (>60); Glucose 125 mg/dL (80-110); Sodium 136 mmol/L (137-145)
[2022-08-08 07:43] VITALS: BP 103/64; PULSE 54; RESP 16; TEMP 36.5; O2SAT 93
[2022-08-08] MEDS: OXYCODONE IR 5 MG TABLET PO ×2 (11:20→15:30)
--- NOTE | 2022-08-08 11:53 | DI.ECHO.S_ITS ---
[facility]---------+ [facility] +---------+ : : [address] : [place] : : : : [id number] : : : : Phone: [phone]+ Echocardiogram Report + + :Name: DAISY GARCIA Study Date: 08/08/2022 Height: 68 in : :[facility] ReadingLocation: [facility] Weight: 199 lb : : Gender: Male BSA: 2.0 m2 : :: 1955 Age: 67 yrs BP: 118/64 mmHg: :Reason For Study: TIA : : Performed By: Shara Alvarado : :Referring: PHYLLIS WILKINSON : + + Interpretation Summary The left ventricle is borderline dilated. The ejection fraction is estimated to be 55-60%. There are no focal wall motion abnormalities. Diastolic parameters suggest a relaxation abnormality of the left ventricle, consistent with probable normal filling pressures. The right ventricle is normal in size and function. The right ventricular systolic pressure is estimated to be at least 20 mmHg based on an estimated right atrial pressure of 3 mm Hg. The left atrium is moderately dilated. Right atrial size is normal. Injection of contrast documented an interatrial shunt. There is no significant valvular heart disease. The aortic root is mildly dilated. The ascending aorta is mildly enlarged. Procedure: A two-dimensional transthoracic echocardiogram with color flow and Doppler was performed. The study quality was technically adequate. There is no prior echocardiogram noted for this patient. A saline contrast injection was performed to assess for cardiac shunting. The patient was in sinus rhythm with heart rates between 52-73 bpm during the exam. Left Ventricle: The left ventricle is borderline dilated. There is normal left ventricular wall thickness. The ejection fraction is estimated to be 55- 60%. There are no focal wall motion abnormalities. Diastolic parameters suggest a relaxation abnormality of the left ventricle, consistent with probable normal filling pressures. Right Ventricle: The right ventricle is normal in size and function. Atria: The left atrium is moderately dilated. Right atrial size is normal. Injection of contrast documented an interatrial shunt. Mitral Valve: The mitral valve leaflets appear mildly thickened, but open well. There is no mitral regurgitation noted. Aortic Valve: The aortic valve is trileaflet. The aortic valve opens well. There is trace aortic regurgitation. Tricuspid Valve: The tricuspid valve is normal in structure and function. The right ventricular systolic pressure is estimated to be at least 20 mmHg based on an estimated right atrial pressure of 3 mm Hg. Pulmonic Valve: The pulmonic valve leaflets are thin and pliable; valve motion is normal. There is a trace or physiologic amount of pulmonic regurgitation. There is no significant valvular heart disease. Great Vessels: The aortic root is mildly dilated. The ascending aorta is mildly enlarged. The aortic arch is normal in size. The IVC is of normal diameter and collapses greater than 50% with a sniff. This suggests a low right atrial pressure of 3 mm Hg. Pericardium/ Pleura There is no pericardial effusion. MMode/2D Measurements & Calculations LVIDd: 5.9 cm LVOT diam: 2.5 cm LVIDs: 3.4 cm Ao root diam: 4.7 cm FS: 41.6 % asc Aorta Diam: 4.0 cm EPSS: 0.39 cm Ao Arch Diam (Prox Trans): 2.6 cm IVSd: 1.1 cm LVPWd: 0.68 cm LV winslow. diameter/BSA (cm/m^2): 2.9 LV sys. diameter/BSA (cm/m^2): 1.7 LA A2 area: 27.3 cm2 RA long axis: 4.9 cm LA A4 area: 25.7 cm2 RA area: 17.8 cm2 LA length (vol): 6.5 cm RA vol: 54.6 ml LA vol: 91.8 ml RA : 26.8 ml/m2 LA vol index: 45.0 ml/m2 IVC diam: 1.4 cm RVD1 (basal): 4.1 cm TAPSE: 2.7 cm Doppler Measurements & Calculations Ao V2 max: 157.3 cm/sec LVOT Max Oscar: 70.2 cm/sec Ao V2 mean: 104.8 cm/sec LV V1 max P.0 mmHg Ao max P.9 mmHg LV V1 VTI: 16.8 cm Ao mean P.2 mmHg FREDIS(I,D): 2.9 cm2 Ao V2 VTI: 29.5 cm FREDIS(V,D): 2.3 cm2 sev ratio: 0.57 FREDIS indexed to BSA (cm^2/m^2): 1.4 MV E max oscar: 45.7 cm/sec TR max oscar: 202.8 cm/sec MV A max oscar: 68.3 cm/sec TR max P.5 mmHg MV E/A: 0.67 PA V2 max: 67.1 cm/sec Med Peak E' Oscar: 5.9 cm/sec PA V2 mean: 48.4 cm/sec E/E' med: 7.8 PA mean P.0 mmHg Lat Peak E' Oscar: 8.8 cm/sec PA pr(Accel): 41.7 mmHg E/E' lat: 5.2 E/e' average: 6.5 MV dec time: 0.29 sec SV(LVOT): 85.2 ml Reading Physician:09:45 PM
--- NOTE | 2022-08-08 12:00 | CM.DANOTE ---
DCP: Case received, EMR reviewed and met with patient. Spouse, Becca, was at bedside. Introduced self and role. Was able to obtain information regarding patient's baseline activity level prior to his surgery. DCP assessment completed with information currently available. Patient is a 67 year old male who admitted yesterday morning to the care of his urologist. PCP: Dr. Molina. Payer: confirmed[facility]. Patient came to the hospital via private vehicle for a surgical procedure. Patient had right extracorporeal shockwave litotripsy, and cystoscopy/placement of right ureteral stent. Patient diagnosed with right renal calculi. Patient had then obtained a hospitalist consult with MRI, with concerns about some facial droop. Met with patient and spouse in the room. He is feeling better, just tired. Confirmed that they both reside in [place]. 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 He is hopeful to go home. P: DCP to continue to follow. Plan is home when deemed medically stable. Marcia Millan RN/Corporate Technical Recruiter Discharge Planning/Care Management CM Discharge Assessment Start: 08/08/22 11:54 Freq: Status: Active Protocol: Document 08/08/22 11:54 (Rec: 08/08/22 12:00 [id number]) Discharge Planning Assessment Assigned Rerolling Machine Operator Marcia Millan RN/Corporate Technical Recruiter Advance Directives? Yes Advance Directives on File No History Provided By Patient,Medical Record Prior Living Arrangements House Household Members spouse Type of transporation used prior to Drives own vehicle admit Independent with ADL's Yes Is patient alert and oriented? Yes Caregiver for Another No Barriers to Discharge No Discharge Plan Home Transportation Arrangement Spouse Referrals Initiated None needed Whiteboard Updated in Patient Room with Yes name and ext. # of Rerolling Machine Operator Review Status In Process Next Review Type Continued Stay Review Pre-Anesthesia Assessment Start: 07/30/22 12:33 Freq: Status: Complete Protocol: Document 07/30/22 12:33 CAB (Rec: 07/30/22 12:34 CAB [id number]) Pre-Anesthesia Assessment Patient Information Reviewed Via Chart Review Primary Care Provider Jorge Molina Seen Specialist in Last 12 Months Yes Specialist Seen Urologist Primary Language Citizen Of [place] Accounting Systems Analyst Required No Height 5 ft 8 in Weight 199 lb 0.004 oz Body Mass Index (BMI) 30.2 Hearing Ability Hearing Impaired Hx Anesthesia Reactions No Hx Family Anesthesia Reaction No Hx Malignant Hyperthermia No Hx Blood Transfusions No Hx Blood Transfusion Reaction No Anesthesia Review Requested No 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 No Cardiac Clearance Received Not Applicable Genitourinary Symptoms Flank Pain Urinary Catheter Present No Hx Urinary Self Catheterization No Diabetes Yes Hx Drug Resistant Organism No Presence of External or Internal Medical No Devices Received a COVID vaccine? Yes Marital Status Lives With spouse Patient Discharge Plan Description Return Home Advance Directives? Yes
[2022-08-08 12:36] VITALS: BP 118/64; PULSE 61; RESP 16; TEMP 37.2; O2SAT 94
--- NOTE | 2022-08-08 16:22 | PM.PN.1 ---
Subjective Subjective Interval history: Chapo Santos is a 67-year-old male with past medical history of hypertension, hyperlipidemia, type 2 diabetes, hypothyroidism, and kidney stones who presented postop after right kidney lithotripsy and stent placement with possible TIA Exam Vital Signs (past 8 hours): - 08/08/22 09:39 08/08/22 12:36 Temperature 98.9 F Pulse Rate 61 Respiratory Rate 16 Blood Pressure 118/64 Pulse Oximetry 94 Oxygen Delivery Method Room Air Oxygen Delivery Method Room Air Oxygen Flow Rate 0 Narrative Exam Narrative: GEN: no acute distress, appears in pain HEENT: moist mucous membranes, PERRL NECK: trachea midline, no JVD CV: regular rate and rhythm, no murmurs PULM: clear bilaterally ABD: soft, nontender, nondistended, no organomegaly EXT: warm and well perfused with no edema NEURO: awake, alert, oriented, no focal deficits, no facial droop, no extremity weakness Objective Labs 08/08/22 05:25 08/08/22 05:25 Labs: Laboratory Results - last 24 hr 08/08/22 08/08/22 05:25 05:25 WBC 9.2 RBC 4.27 L Hgb 13.7 Hct 40.2 L MCV 94.3 MCH 32.1 MCHC 34.1 RDW 13.3 Plt Count 138 L Neut % (Auto) 75.2 H Lymph % (Auto) 12.9 L [place] % (Auto) 10.5 Eos % (Auto) 1.2 L Baso % (Auto) 0.2 Neut # (Auto) 6900 Lymph # (Auto) 1200 [place] # (Auto) 1000 H Eos # (Auto) 100 Baso # (Auto) 0 Sodium 136 L Potassium 4.0 Chloride 105 Carbon Dioxide 24 BUN 14 Creatinine 1.15 Estimated GFR > 60 BUN/Creatinine Ratio 12.2 Glucose 125 H Calcium 8.1 L PFSH Medical History Calculus of right kidney Cellulitis of left thumb Diabetes type 2, controlled Diverticular disease of colon Essential hypertension Gilbert syndrome Hearing loss History of arthritis History of renal stone Hx of essential hypertension Hyperlipemia Hypothyroidism (acquired) Impaired glucose tolerance Kidney stones Male hypogonadism Primary insomnia Raynauds phenomenon Renal colic on right side Surgical History History of ankle surgery (~2001) History of knee surgery (~2001) Hx of colonoscopy (05/06/22) Family History Family/Other No problems noted. Social History marital status: number of children: 1 household members: spouse Smoking Status: Former smoker alcohol intake: current Assessment & Plan Assessment & Plan narrative: # possible postop TIA -patient awoke from anesthesia with right-sided facial droop and right facial numbness, not tpa candidate as symptoms resolved -CT head and CTA head and neck were normal -MRI brain ordered, echo ordered -tele to look for atrial fibrillation -start aspirin daily, ABCD2 score of 2 so we will not add Plavix at this time -permissive hypertension -check lipids, A1c 5.8% # s/p right lithotripsy and stent placement due to 2 kidney stones -performed by Dr. Ferrer, urology on 08/07 -pain medication as needed # hypertension -holding home losartan for 24 hour # type 2 diabetes -not on medications at home, most recent A1c 5.7% in 2020 -A1c 5.8% # hypothyroidism -continue home Synthroid -check TSH Code status is full code. COVID negative. DVT prophylaxis with Lovenox. Proxy is . Quality VTE Deep Vein Thrombosis/Pulmonary Embolism Present on Admission: No
--- NOTE | 2022-08-08 18:45 | P.DS_ITS ---
History of Present Illness History of Present Illness Chief complaint: CTC Narrative: Chapo Santos is a 67-year-old male with past medical history of hypertension, hyperlipidemia, type 2 diabetes, hypothyroidism, and kidney stones who presented postop after right kidney lithotripsy and stent placement with possible TIA post urological procedure. Discharge Providers Provider Discharge Date: 08/08/22 Primary care physician: Jorge Molina MD Discharge provider: Lizzeth Lr MD Summary Hospital Course Discharge Diagnosis: TIA post urological procedure Thrombocytopenia Hyperlipidemia Calculus of right kidney, currently post lithotripsy Cellulitis of left thumb Diabetes type 2, controlled Diverticular disease of colon Essential hypertension Gilbert syndrome Hearing loss History of arthritis History of renal stone Hx of essential hypertension Hypothyroidism (acquired) Impaired glucose tolerance Kidney stones Male hypogonadism Primary insomnia Raynauds phenomenon Renal colic on right side History of ankle surgery (~2001) History of knee surgery (~2001) Hx of colonoscopy (05/06/22) Hospital Course: Chapo Santos is a 67-year-old male with past medical history of hypertension, hyperlipidemia, type 2 diabetes, hypothyroidism, and kidney stones who presented postop after right kidney lithotripsy and stent placement with possible TIA post urological procedure. His ABCD2 score was 2 and therefore the patient was only placed on ASA 81mg daily. His lipid panel was elevated and the patient was treated with atorvastatin 40 mg daily and this should be continued on discharge. It should also be followed to ensure that is effective for his hyperlipidemia. It was thought that more the most likely cause of this TIA was uncontrolled hypertension at the time of the end of surgery in the postoperative early phase. Patient discharged with his regular hypertension medications in place and the patient was normotensive. Echocardiogram result was not available at the time of discharge and the patient will be called when the result is available. His family physician can also look for the results when available. Status at Discharge Cognitive/behavioral status at discharge: at baseline, oriented Functional status at discharge: independent ambulation Overall status at discharge: patient is back to baseline Exam Vital Signs (past 8 hours): - 08/08/22 12:36 Temperature 98.9 F Pulse Rate 61 Respiratory Rate 16 Blood Pressure 118/64 Pulse Oximetry 94 Oxygen Delivery Method Room Air Oxygen Flow Rate 0 Narrative Exam Narrative: GEN: no acute distress, appears in pain HEENT: moist mucous membranes, PERRL NECK: trachea midline, no JVD CV: regular rate and rhythm, no murmurs PULM: clear bilaterally ABD: soft, nontender, nondistended, no organomegaly EXT: warm and well perfused with no edema NEURO: awake, alert, oriented, no focal deficits, no facial droop, no extremity weakness Objective Labs 08/08/22 05:25 08/08/22 05:25 Labs: Laboratory Results - last 24 hr 08/08/22 08/08/22 05:25 05:25 WBC 9.2 RBC 4.27 L Hgb 13.7 Hct 40.2 L MCV 94.3 MCH 32.1 MCHC 34.1 RDW 13.3 Plt Count 138 L Neut % (Auto) 75.2 H Lymph % (Auto) 12.9 L [place] % (Auto) 10.5 Eos % (Auto) 1.2 L Baso % (Auto) 0.2 Neut # (Auto) 6900 Lymph # (Auto) 1200 [place] # (Auto) 1000 H Eos # (Auto) 100 Baso # (Auto) 0 Sodium 136 L Potassium 4.0 Chloride 105 Carbon Dioxide 24 BUN 14 Creatinine 1.15 Estimated GFR > 60 BUN/Creatinine Ratio 12.2 Glucose 125 H Calcium 8.1 L PFSH Medical History Calculus of right kidney Cellulitis of left thumb Diabetes type 2, controlled Diverticular disease of colon Essential hypertension Gilbert syndrome Hearing loss History of arthritis History of renal stone Hx of essential hypertension Hyperlipemia Hypothyroidism (acquired) Impaired glucose tolerance Kidney stones Male hypogonadism Primary insomnia Raynauds phenomenon Renal colic on right side Surgical History History of ankle surgery (~2001) History of knee surgery (~2001) Hx of colonoscopy (05/06/22) Family History Family/Other No problems noted. Social History marital status: number of children: 1 household members: spouse Smoking Status: Former smoker alcohol intake: current Discharge Plan Discharge Plan Patient Disposition: Home Nursing Discharge Comment: Resume home medications as directed. Use eye drops hourly and the PM eye lubricant at night for comfort. Discharge orders & Medications Discharge Orders: Discharge (Order); Ordered 08/08/22 Ordered By: Lizzeth Lr Prescriptions: New oxycodone 5 mg tablet 5 mg PO Q4H PRN (Reason: pain) Qty: 14 0RF aspirin 81 mg Tablet,Delayed Release (Dr/Ec) 81 mg PO DAILY Qty: 30 0RF melatonin 3 mg Tablet 6 mg PO BEDTIME PRN (Reason: Insomnia) Qty: 30 0RF polyethylene glycol 3350 17 gram Powder In Packet 17 g PO DAILY PRN (Reason: Constipation) Qty: 14 0RF sennosides [senna] 8.6 mg Tablet 8.6 mg PO BID PRN (Reason: Constipation) Qty: 30 0RF atorvastatin [Lipitor] 40 mg tablet 40 mg PO DAILY Qty: 30 0RF Continued levothyroxine 137 mcg tablet 137 mcg PO DAILY Qty: 90 1RF Rx Instructions: APPT DUE AT END OF YEAR FOR ROUTINE FOLLOW UP. PLEASE CALL TO SCHEDULE APPT. THANKS 12/15/21. losartan 100 mg tablet 100 mg PO DAILY Qty: 90 3RF fluocinonide 0.05 % cream 1 applic TOP BID PRN (Reason: itching/rash) Qty: 120 0RF tadalafil [Cialis] 5 mg tablet 5 mg PO DAILY PRN (Reason: sexual activity) Qty: 30 3RF Rx Instructions: Take 1-3 tablets daily as needed 60 minutes before sexual activity. Follow up/Referrals: Tien Ferrer MD [Physician] - Jorge Molina MD [Primary Care Provider] - Diet/Activity/Treatments Diet: Diet as Tolerated Activity: No restrictions beginning 08/08/2022. Skin/Wound/Dressing Care Report to your healthcare provider any signs of infection, such as:: chills, fever, night sweats, increased pain and unusual drainage Visit Report/Discharge Packet Instructions: DI for Cystoscopy, DI for Extracorporeal Shock Wave Lithotripsy, DI for Prescription Opioid Use, Aspirin Stand Alone Forms: Patient Portal/API, Stroke Signs & Symptoms, Surgery Discharge Discharge Data Primary Care Provider: Jorge Molina Attending Provider: Tien Ferrer Quality VTE Deep Vein Thrombosis/Pulmonary Embolism Present on Admission: No
== END 2022-08-08 18:22 | disposition home or self-care (01) ==
LOC: OR 11:46 → AC 11:47
PROVIDERS: Student in an Organized Health Care Education/Training Program; Admitting Provider Specialist; PCP Internal Medicine; Referring Provider Specialist; Visit Provider Specialist
PROC: (CPT 50590; principal; 2022-08-07 07:45)
PROC: (CPT 50590; 2022-08-07 07:45)
DX: N20.0 Calculus of kidney (principal); Z87.442 Personal history of urinary calculi; R29.703 NIHSS score 3; I10 Essential (primary) hypertension; E11.9 Type 2 diabetes mellitus without complications; E03.9 Hypothyroidism, unspecified; R29.810 Facial weakness; R20.0 Anesthesia of skin; Z20.822 Contact with and (suspected) exposure to COVID-19
CPT/HCPCS: 50590; 52332; 36415; 70450; 70496; 70498; 70551; 71045; 74018; 80048; 80053; 80061; 82962; 83036; 83735; 84443; 85025; 85610; 85730; 87635; 93306; C9803; G0378; J0330; J0690; J1650; J2405; J2704; J3010

== ENCOUNTER → 2022-08-14 09:00 | Outpatient (CLI) | payer MEDICARE, SELFPAY ==
[2022-08-10 10:01] VITALS: BMI 30.2
--- NOTE | 2022-08-14 09:01 | DI.RAD.S_ITS ---
PROCEDURE: XR KUB INDICATIONS: kidney calculus TECHNIQUE: One view of the abdomen acquired. COMPARISON: [facility], CR, XR KUB, 08/07/2022, 6:43. [facility], CR, XR KUB, 07/24/2022, 9:00. FINDINGS: Surgical changes and devices: Right-sided nephroureteral stent in place. Bowel: Bowel gas pattern is normal. Soft tissues: Suspected interval right-sided lithotripsy. Persistent 1.3 centimeter stone in the inferior calyx of the right kidney. Additional grouping of small calcifications in the inferior calyx of the right kidney. Bones: No suspicious bony lesions. IMPRESSION: Interval lithotripsy suspected. Appropriately positioned nephroureteral stent. Dictated by: Leon Huitron M.D. on 08/14/2022 at 9:21 Approved by: Leon Huitron M.D. on 08/14/2022 at 9:35
== END ==
PROVIDERS: PCP Internal Medicine; Referring Provider Specialist; Visit Provider Specialist
DX: N20.0 Calculus of kidney (principal)
CPT/HCPCS: 74018

== ENCOUNTER 2022-09-25 06:23 | Day surgery (SDC) | payer MEDICARE, SELFPAY ==
[2022-08-10 10:01] VITALS: BMI 30.2
[2022-09-01 12:10] LABS: Ca oxalate monohydr 100 % (.); Size <1 mm (.)
[2022-09-22 14:14] VITALS: BMI 31.0
[2022-09-25] VITALS (7 sets, daily range): BP systolic 105–157; BP diastolic 66–92; PULSE 55–75; RESP 12–20; TEMP 36.1–36.7; O2SAT 92–97; BMI 31.0
--- NOTE | 2022-09-25 | DI.RAD.S_ITS ---
PROCEDURE: XR KUB INDICATIONS: Right nephrolithiasis TECHNIQUE: One view of the abdomen acquired. COMPARISON: [facility], , XR KUB, 08/14/2022, 9:06. FINDINGS: Surgical changes and devices: Right-sided ureteral stent is in place. Previously noted calcifications projecting in lower pole of right kidney is less well seen with faint calcifications noted in the region of upper and lower pole right kidney measures up to 4 mm in size. Bowel: Bowel gas pattern is normal. Soft tissues: No suspicious abdominal calcifications. Visualized solid organ contours appear normal in size. Bones: No suspicious bony lesions. IMPRESSION: In previously noted 1.3 cm right-sided renal calcification is no longer present. Small sub 5 mm calcifications are noted in right kidney not significantly changed from prior study. Right-sided ureteral stent in place. No gross free air. Dictated by: Blaise Chan M.D. on 09/25/2022 at 8:51 Approved by: Blaise Chan M.D. on 09/25/2022 at 8:53
[2022-09-25] MEDS: LACTATED RINGERS 1,000 ML 21 ML IV (06:55)
--- NOTE | 2022-09-25 07:36 | PM.HP.1 ---
History of Present Illness History of Present Illness Date Patient Seen: 09/25/22 Time Patient Seen: 07:36 Chief complaint: SDC Narrative: Binh is a 67-year-old male returning today for schedule second-stage right ESWL and possible right ureteral stent removal. He is status post first-stage right ESWL and right stent placement on 08/07/2022. Surgically he would a smooth an excellent recovery. In recovery, however, there was concern by nursing of possible neurologic event. He was admitted underwent a number studies who now CVA. In the interval he is met with his PCP and in process of management of underlying risk factors for CAD/CVD/PVD. KUB today shows interval significant stone fragment clearance compared to 08/14/2022. However several 3-4 mm fragments remain. Stent remains in excellent position. [facility] Medical History Calculus of right kidney Cellulitis of left thumb Diabetes type 2, controlled Diverticular disease of colon Essential hypertension Gilbert syndrome Hearing loss Hx of essential hypertension Hyperlipemia Hypothyroidism (acquired) Impaired glucose tolerance Kidney stones Male hypogonadism Primary insomnia Raynauds phenomenon Renal colic on right side Surgical History History of ankle surgery (~2001) History of knee surgery (~2001) Hx of colonoscopy (05/06/22) Hx of cystoscopy (08/07/22) Family History Family/Other No problems noted. Social History marital status: number of children: 1 household members: spouse Smoking Status: Former smoker alcohol intake: former Meds Home Medications and Allergies Home Medications Medication Instructions Recorded Confirmed Type fluocinonide 0.05 % topical cream 1 applic topical BID PRN 04/16/20 09/21/22 Rx itching/rash #120 grams losartan 100 mg tablet 100 mg PO DAILY #90 tabs 05/26/22 09/25/22 Rx tadalafil 5 mg tablet (Cialis) 5 mg PO DAILY PRN sexual activity 07/01/22 09/25/22 Rx #30 tabs aspirin 81 mg tablet,delayed 81 mg PO DAILY #30 tabs 08/08/22 09/25/22 Rx release melatonin 3 mg tablet 6 mg PO BEDTIME PRN Insomnia #30 08/08/22 09/21/22 Rx tabs polyethylene glycol 3350 17 gram 17 g PO DAILY PRN Constipation #14 08/08/22 09/21/22 Rx oral powder packet ea levothyroxine 137 mcg tablet 137 mcg PO DAILY #90 tabs 08/20/22 09/25/22 Rx Allergies Allergy/AdvReac Type Severity Reaction Status Date / Time tomato Allergy Verified 09/25/22 06:41 morphine AdvReac Mild Does not Verified 09/25/22 06:41 help. HAs Exam Vital Signs (past 8 hours): - 09/25/22 06:42 Temperature 98 F Pulse Rate 62 Respiratory Rate 16 Blood Pressure 157/92 H Pulse Oximetry 97 Oxygen Delivery Method Room Air Oxygen Delivery Method Room Air Narrative Exam Narrative: Well-developed, moderately over gentleman in no acute distress. Head/neck-sclera clear pupils are equal and round bilaterally. Neck is the of the or JVD. Heart normal sinus rhythm. Assessment & Plan Assessment & Plan narrative: Assessment: 1. Right nephrolithiasis. 2. Retained right stent. Plan: 1. Proceed with schedule second-stage right ESWL/possible cystoscopy and right ureteral stent removal.
[2022-09-25] MEDS: CEFAZOLIN 2 GM/100 ML PREMIX 100 ML IV (08:00)
--- NOTE | 2022-09-25 08:04 | SUR.OPER ---
Supine on ESWL bed, head on pillow, arms padded and tucked at sides, legs uncrossed for ESWL. Patient placed in padded leg stirrups for cystoscopy. Warm blankets for warming.
--- NOTE | 2022-09-25 08:59 | PM.OP.1 ---
Operative Date/Time/Diagnoses Date of procedure: 09/25/22 Time of procedure: 08:25 Pre-op diagnosis: 1. Right nephrolithiasis. 2. Retained right ureteral stent. Post-op diagnosis: same Procedure & Clinicians Procedure: 1. Second-stage Right extracorporeal shockwave lithotripsy (maximal power level 6.0 x 1000 shocks). 2. Cystoscopy/removal right ureteral stent. Same procedure as scheduled: Yes Indications: 1. Right nephrolithiasis. 2. Retained right ureteral stent. Surgeon: Tien Ferrer Click Yes if Unassisted: Yes Anesthesia Type: General Operative Notes Findings: 1. Urethra-normal caliber without annular stricture or lesion. 2. External sphincter-coapted with normal overlying urothelium. 3. Prostate-4 cm+ length with moderate trilobar hyperplasia and elevated median bar. 4. Bladder-2+ trabeculation. Normal ureteral orifices bilaterally with intact indwelling right ureteral stent on the right. There surface material adherent to the distal coil. There are numerous fragments seen residing in the floor of the bladder. 5. Right kidney-residual fragments are visualized over the right lower pole collecting system as seen in preoperative imaging. Closure Type: not applicable Specimen(s): other (Stone fragments-right kidney.) Estimated Blood Loss (mL): 0 Blood products transfused: none Procedure in detail: The patient was positioned in supine was administered general anesthesia. The above-described stone fragments were localized explain Z plane. Lithotripsy was then commenced at minimal power level for total 200 shocks. A 2 minute pause was then conducted. Lithotripsy was then resumed and power level was gradually increased to maximum 6.0. The 3-4 mm fragment cluster was monitored fluoroscopically throughout the treatment. At 1000 shocks no significant residual stone burden could be visualized radiographically. Lithotripsy was halted. The patient was then repositioned in semilithotomy and the lower abdomen, genitalia, and groin were then prepped and draped in sterile fashion. The 22 [place] horton endoscope was then inserted lower urinary tract with the findings as described above. The bladder was filled twice with attempted drain the dependent stone fragments without much success. The [employer] evacuator was then utilized to evacuate at least some of the fragments to be submitted for crystallographic analysis. The bladder was then drained completely. The right ureteral stent was engaged with an alligator foreign body grasper and withdrawn from within the urinary tract. The patient was then repositioned in supine, was awakened, transferred to [facility] and then transported recovery in stable condition. Complications: none Post-operative Condition: stable Disposition: PACU Plan for aftercare: Discharge home.
[2022-10-01 11:38] LABS: Ca oxalate dihydrate 30 % (.); Ca oxalate monohydr 70 % (.)
== END 2022-09-25 09:39 | disposition home or self-care (01) ==
PROVIDERS: PCP Internal Medicine; Referring Provider Specialist; Visit Provider Specialist
PROC: (CPT 50590; principal; 2022-09-25 07:45)
PROC: (CPT 50590; 2022-09-25 07:45)
DX: N20.1 Calculus of ureter (principal); Z46.6 Encounter for fitting and adjustment of urinary device; N40.0 Benign prostatic hyperplasia without lower urinary tract symptoms
CPT/HCPCS: 50590; 52310; 74018; 82365; J0690; J1100; J1885; J2250; J2405; J2704; J3010

== ENCOUNTER → 2022-11-15 15:16 | Outpatient (CLI) | payer MEDICARE, SELFPAY ==
[2022-08-10 10:01] VITALS: BMI 30.2
--- NOTE | 2022-11-15 15:18 | DI.RAD.S_ITS ---
PROCEDURE: XR KUB INDICATIONS: history of kidney stones TECHNIQUE: One view of the abdomen acquired. COMPARISON: [facility], CR, XR KUB, 09/25/2022, 6:26. [facility], CR, XR KUB, 08/14/2022, 9:06. FINDINGS: Surgical changes and devices: None. Bowel: Bowel gas pattern is normal. Soft tissues: No suspicious abdominal calcifications. Visualized solid organ contours appear normal in size. No nephrolithiasis. Interval removal of the right nephroureteral stent. Bones: No suspicious bony lesions. IMPRESSION: No nephrolithiasis. Dictated by: Leon Huitron M.D. on 11/15/2022 at 18:26 Approved by: Leon Huitron M.D. on 11/15/2022 at 18:26
== END ==
PROVIDERS: PCP Internal Medicine; Referring Provider Specialist; Visit Provider Specialist
DX: Z09 Encounter for follow-up examination after completed treatment for conditions other than malignant neoplasm (principal); Z87.442 Personal history of urinary calculi
CPT/HCPCS: 74018

== ENCOUNTER → 2023-04-24 08:31 | Outpatient (CLI) | payer MEDICARE, SELFPAY ==
[2022-08-10 10:01] VITALS: BMI 30.2
[2023-04-24 09:50] LABS: Alanine Aminotransferase 18 IU/L (<50); Albumin 4.2 g/dL (3.5-5.0); Albumin Globulin Ratio 1.4 (1.0-2.8); Alkaline Phosphatase 65 U/L (38-126); Aspartate Aminotransferase 22 IU/L (17-59); BUN Creatinine Ratio 21.7 (6-22); Bilirubin Total 1.1 mg/dL (0.2-1.3); Blood Urea Nitrogen 20 mg/dL (9-20); Calcium 9.4 mg/dL (8.4-10.2); Carbon Dioxide 26 mmol/L (22-32); Cholesterol 225 mg/dL (140-199); Estimated Glomerular Filt Rate > 60 mL/min (>60); Glucose 109 mg/dL (80-110); HDL Cholesterol 35 mg/dL (40-60); HEMOLYSIS < 15 (0-50); LDL Cholesterol Calculated 158 mg/dL (<100); Total Protein 7.2 g/dL (6.3-8.2); Triglycerides 161 mg/dL (35-150)
[2023-04-24 09:58] LABS: Chloride 106 mmol/L (98-107); Potassium 4.1 mmol/L (3.4-5.1); Sodium 141 mmol/L (137-145)
[2023-04-24 10:07] LABS: Free T4, Direct Thyroxine 1.62 ng/dL (0.78-2.19)
[2023-04-24 10:20] LABS: Prostate Specific Antigen Scrn 2.51 ng/mL (0.1-4.0)
[2023-04-24 10:21] LABS: Thyroid Stimulating Hormone 2.35 uIU/mL (0.47-4.68)
== END ==
PROVIDERS: PCP Internal Medicine; Referring Provider Internal Medicine; Visit Provider Internal Medicine
DX: Z12.5 Encounter for screening for malignant neoplasm of prostate (principal); I10 Essential (primary) hypertension; E78.5 Hyperlipidemia, unspecified; E03.9 Hypothyroidism, unspecified; R73.02 Impaired glucose tolerance (oral)
CPT/HCPCS: 36415; 80053; 80061; 84439; 84443; G0103

== ENCOUNTER → 2023-05-05 13:07 | Outpatient (CLI) | payer MEDICARE, SELFPAY ==
[2022-08-10 10:01] VITALS: BMI 30.2
--- NOTE | 2023-05-05 13:09 | DI.RAD.S_ITS ---
PROCEDURE: XR KUB INDICATIONS: Hx of Kidney Stones TECHNIQUE: One view of the abdomen acquired. COMPARISON: [facility], CR, XR KUB, 11/15/2022, 15:12. FINDINGS: Surgical changes and devices: None. Bowel: Bowel gas pattern is normal. Soft tissues: No suspicious abdominal calcifications. Visualized solid organ contours appear normal in size. Bones: No suspicious bony lesions. IMPRESSION: Nonobstructive bowel gas pattern. No radiographic evidence of nephrolithiasis. Approved by: Sylvie Bailey M.D. on 05/05/2023 at 17:39
== END ==
PROVIDERS: PCP Internal Medicine; Referring Provider Specialist; Visit Provider Specialist
DX: N20.0 Calculus of kidney (principal)
CPT/HCPCS: 74018

== ENCOUNTER → 2023-07-28 09:23 | Outpatient (CLI) | payer MEDICARE, SELFPAY ==
[2022-08-10 10:01] VITALS: BMI 30.2
[2023-07-28 10:43] LABS: Prostate Specific Antigen 1.22 ng/mL (0.10-4.00)
== END ==
PROVIDERS: PCP Internal Medicine; Referring Provider Specialist; Visit Provider Specialist
DX: N40.0 Benign prostatic hyperplasia without lower urinary tract symptoms (principal)
CPT/HCPCS: 36415; 84153

== ENCOUNTER → 2024-03-21 07:13 | Outpatient (CLI) | payer MEDICARE, SELFPAY ==
[2022-08-10 10:01] VITALS: BMI 30.2
[2024-03-21 08:58] LABS: Alanine Aminotransferase 17 IU/L (<50); Albumin 4.4 g/dL (3.5-5.0); Albumin Globulin Ratio 1.5 (1.0-2.8); Alkaline Phosphatase 71 U/L (38-126); Aspartate Aminotransferase 23 IU/L (17-59); BUN Creatinine Ratio 16.7 (6-22); Bilirubin Total 1.2 mg/dL (0.2-1.3); Blood Urea Nitrogen 18 mg/dL (9-20); Calcium 9.5 mg/dL (8.4-10.2); Carbon Dioxide 27 mmol/L (22-32); Chloride 106 mmol/L (98-107); Cholesterol 266 mg/dL (140-199); Estimated Glomerular Filt Rate > 60 mL/min (>60); Globulin 2.9 g/dL (1.7-4.1); Glucose 106 mg/dL (80-110); HDL Cholesterol 40 mg/dL (40-60); HEMOLYSIS < 15 (0-50); LDL Cholesterol Calculated 193 mg/dL (<100); Potassium 4.5 mmol/L (3.4-5.1); Sodium 139 mmol/L (137-145); Total Protein 7.3 g/dL (6.3-8.2); Triglycerides 166 mg/dL (35-150)
[2024-03-21 09:15] LABS: Free T4, Direct Thyroxine 1.39 ng/dL (0.78-2.19)
[2024-03-21 09:29] LABS: Thyroid Stimulating Hormone 2.76 uIU/mL (0.47-4.68)
== END ==
PROVIDERS: PCP Internal Medicine; Referring Provider Internal Medicine; Visit Provider Internal Medicine
DX: I10 Essential (primary) hypertension (principal); E03.9 Hypothyroidism, unspecified; R73.02 Impaired glucose tolerance (oral); E78.2 Mixed hyperlipidemia
CPT/HCPCS: 36415; 80053; 80061; 84439; 84443

== ENCOUNTER → 2024-08-23 06:52 | Outpatient (CLI) | payer MEDICARE, SELFPAY ==
[2024-06-26 11:45] VITALS: BMI 30.2
[2024-08-23 08:14] LABS: Alanine Aminotransferase 19 IU/L (<50); Albumin 4.4 g/dL (3.5-5.0); Albumin Globulin Ratio 1.8 (1.0-2.8); Alkaline Phosphatase 65 U/L (38-126); Aspartate Aminotransferase 22 IU/L (17-59); BUN Creatinine Ratio 19.6 (6-22); Blood Urea Nitrogen 21 mg/dL (9-20); Calcium 9.6 mg/dL (8.4-10.2); Carbon Dioxide 26 mmol/L (22-32); Chloride 107 mmol/L (98-107); Cholesterol 246 mg/dL (140-199); Estimated Glomerular Filt Rate > 60 mL/min (>60); Globulin 2.5 g/dL (1.7-4.1); Glucose 109 mg/dL (80-110); HDL Cholesterol 38 mg/dL (40-60); HEMOLYSIS < 15 (0-50); LDL Cholesterol Calculated 166 mg/dL (<100); Potassium 4.7 mmol/L (3.4-5.1); Sodium 142 mmol/L (137-145); Total Protein 6.9 g/dL (6.3-8.2); Triglycerides 208 mg/dL (35-150)
[2024-08-23 08:42] LABS: Prostate Specific Antigen 0.849 ng/mL (0.10-4.00)
[2024-08-23 08:44] LABS: Testosterone 286 ng/dL (71.8-623)
== END ==
PROVIDERS: PCP Internal Medicine; Referring Provider Urology; Visit Provider Urology
DX: N40.0 Benign prostatic hyperplasia without lower urinary tract symptoms (principal); I10 Essential (primary) hypertension; E29.1 Testicular hypofunction; E78.5 Hyperlipidemia, unspecified
CPT/HCPCS: 36415; 80053; 80061; 84153; 84403

== ENCOUNTER → 2024-08-29 07:00 | Outpatient (CLI) | payer MEDICARE, SELFPAY ==
[2024-06-26 11:45] VITALS: BMI 30.2
--- NOTE | 2024-08-29 07:01 | DI.RAD.S_ITS ---
PROCEDURE: XR KUB INDICATIONS: History of kidney stones TECHNIQUE: One view of the abdomen acquired. COMPARISON: [facility], CR, XR KUB, 05/05/2023, 13:13. FINDINGS: Stool gas pattern: Normal-no evidence of ileus or obstruction. No free intraperitoneal or extraperitoneal air. No gross evidence of ascites Soft tissues: 3 mm stone overlies the right renal pelvis which could indicate a stone Organs: No gross evidence for organomegaly. IMPRESSION: Possibly 3 mm stone overlying the right renal pelvis Dictated by: Jorge Vásquez M.D. on 08/29/2024 at 8:51 Approved by: Jorge Vásquez M.D. on 08/29/2024 at 8:52
== END ==
PROVIDERS: PCP Internal Medicine; Referring Provider Urology; Visit Provider Urology
DX: Z09 Encounter for follow-up examination after completed treatment for conditions other than malignant neoplasm (principal); Z87.442 Personal history of urinary calculi
CPT/HCPCS: 74018

== ENCOUNTER → 2024-08-31 07:03 | Outpatient (CLI) | payer MEDICARE, SELFPAY ==
[2024-06-26 11:45] VITALS: BMI 30.2
[2024-08-31 09:04] LABS: Testosterone 197 ng/dL (71.8-623)
== END ==
PROVIDERS: PCP Internal Medicine; Referring Provider Urology; Visit Provider Urology
DX: N52.9 Male erectile dysfunction, unspecified (principal)
CPT/HCPCS: 36415; 84403

== ENCOUNTER → 2024-09-01 13:38 | Outpatient (CLI) | payer MEDICARE, SELFPAY ==
[2024-06-26 11:45] VITALS: BMI 30.2
[2024-09-01 14:42] LABS: Prolactin 5.4 ng/mL (3.7-17.9)
[2024-09-01 15:07] LABS: Luteinizing Hormone 2.63 mIU/mL
== END ==
PROVIDERS: PCP Internal Medicine; Referring Provider Urology; Visit Provider Urology
DX: N52.9 Male erectile dysfunction, unspecified (principal)
CPT/HCPCS: 36415; 83002; 84146

== ENCOUNTER → 2024-12-23 08:16 | Outpatient (CLI) | payer MEDICARE, SELFPAY ==
[2024-06-26 11:45] VITALS: BMI 30.2
[2024-12-23 10:35] LABS: Hematocrit 43.2 % (41-53); Hemoglobin 14.6 g/dL (13.5-17.5)
[2024-12-23 11:40] LABS: HEMOLYSIS < 15 (0-50)
[2024-12-23 12:18] LABS: Prostate Specific Antigen 1.87 ng/mL (0.10-4.00)
[2024-12-23 15:35] LABS: Alanine Aminotransferase 18 IU/L (<50); Albumin 4.2 g/dL (3.5-5.0); Albumin Globulin Ratio 1.6 (1.0-2.8); Alkaline Phosphatase 67 U/L (38-126); Blood Urea Nitrogen 20 mg/dL (9-20); Calcium 9.2 mg/dL (8.4-10.2); Carbon Dioxide 23 mmol/L (22-32); Chloride 109 mmol/L (98-107); Estimated Glomerular Filt Rate > 60 mL/min (>60); Globulin 2.6 g/dL (1.7-4.1); Glucose 96 mg/dL (70-99); Potassium 4.9 mmol/L (3.4-5.1); Sodium 144 mmol/L (137-145); Total Protein 6.8 g/dL (6.3-8.2)
== END ==
PROVIDERS: PCP Internal Medicine; Referring Provider Urology; Visit Provider Urology
DX: R97.20 Elevated prostate specific antigen [PSA] (principal); R79.89 Other specified abnormal findings of blood chemistry
CPT/HCPCS: 36415; 80053; 84153; 84403; 85014; 85018

== ENCOUNTER → 2025-03-21 07:57 | Outpatient (CLI) | payer MEDICARE, SELFPAY ==
[2024-06-26 11:45] VITALS: BMI 30.2
[2025-03-21 10:08] LABS: Alanine Aminotransferase 15 IU/L (<50); Albumin 4.3 g/dL (3.5-5.0); Albumin Globulin Ratio 1.7 (1.0-2.8); Alkaline Phosphatase 65 U/L (38-126); Blood Urea Nitrogen 18 mg/dL (9-20); Calcium 9.1 mg/dL (8.4-10.2); Carbon Dioxide 25 mmol/L (22-32); Chloride 109 mmol/L (98-107); Cholesterol 215 mg/dL (140-199); Estimated Glomerular Filt Rate > 60 mL/min (>60); Globulin 2.6 g/dL (1.7-4.1); Glucose 94 mg/dL (70-99); HDL Cholesterol 44 mg/dL (40-60); HEMOLYSIS < 15 (0-50); Potassium 4.5 mmol/L (3.4-5.1); Sodium 142 mmol/L (137-145); Total Protein 6.9 g/dL (6.3-8.2); Triglycerides 150 mg/dL (35-150)
[2025-03-21 10:28] LABS: Free T4, Direct Thyroxine 1.68 ng/dL (0.78-2.19)
[2025-03-21 10:42] LABS: Thyroid Stimulating Hormone 4.31 uIU/mL (0.47-4.68)
== END ==
PROVIDERS: PCP Internal Medicine; Referring Provider Internal Medicine; Visit Provider Internal Medicine
DX: I10 Essential (primary) hypertension (principal); E78.5 Hyperlipidemia, unspecified; E03.9 Hypothyroidism, unspecified
CPT/HCPCS: 36415; 80053; 80061; 84439; 84443